=== PATIENT | female | born 1955 | race Caucasian/White ===

== ENCOUNTER 2020-10-18 16:04 | Observation (INO) ==
[2020-10-18] MEDS ORDERED: SODIUM CHLORIDE 0.9% 500 ML IV STA (17:43)
[2020-10-18] MEDS ORDERED: ONDANSETRON INJ 2 MG/ML 2 ML VIAL IV STA (17:43)
[2020-10-18] MEDS ORDERED: KETOROLAC TROMETHAMINE 15 MG/ML VIAL IV STA (17:43)
[2020-10-18] MEDS ORDERED: ACETAMINOPHEN 1000 MG/100 ML IV IV STA (17:43)
[2020-10-18 17:52] LABS: Basophils # (auto) 0.02 K/uL (0-0.2); Basophils % (auto) 0.2 %; Eosinophils # (auto) 0.01 K/uL (0-0.5); Eosinophils % (auto) 0.1 %; Hemoglobin 14.5 g/dL (12.0-16.0); Immature Granulocytes # (auto) 0.01 K/uL (0.00-0.02); Immature Granulocytes % (auto) 0.1 %; Lymphocytes # (auto) 2.44 K/uL (1.2-3.4); Lymphocytes % (auto) 30.2 %; Mean Corpuscular Hemoglobin 30.9 pg (25-34); Mean Corpuscular Hgb Conc 33.7 g/dL (32-36); Mean Corpuscular Volume 91.7 fL (80-100); Mean Platelet Volume 11.7 fL (7.4-10.4); Monocytes # (auto) 0.78 K/uL (0.11-0.59); Monocytes % (auto) 9.7 %; Neutrophils # (auto) 4.81 K/uL (1.4-6.5); Neutrophils % (auto) 59.7 %; Platelet Count 273 K/uL (130-400); RDW Coefficient of Variation 13.4 % (11.5-14.5); RDW Standard Deviation 44.6 fL (36.4-46.3); Red Blood Count 4.69 M/uL (4.2-5.4); White Blood Count 8.07 K/uL (4.8-10.8)
[2020-10-18 18:07] LABS: Alanine Aminotransferase 28 U/L (12-78); Albumin Level 4.1 gm/dl (3.4-5.0); Aspartate Aminotransferase 23 U/L (15-37); BUN Creatinine Ratio 20.3 (10-20); Blood Urea Nitrogen 21 mg/dl (7-18); Calcium 10.2 mg/dl (8.5-10.1); Carbon Dioxide 24 mmol/L (21-32); Chloride 110 mmol/L (98-107); Creatinine Clr Calc Pharmacy 54.5 ml/min; Est GFR (African American) 65.3 ml/min; Est GFR (Non-African American) 56.3 ml/min; Glucose 92 mg/dl (70-99); Lipase 204 U/L (73-393); Potassium 3.7 mmol/L (3.5-5.1); Sodium 142 mmol/L (136-145)
--- NOTE | 2020-10-18 18:07 | Emergency Department Note ---
Impression & Plan Right sided abdominal pain, Acute right flank pain, Failure of outpatient treatment ED Provider Note NAME: LUIS TOWNSEND AGE: 65 SEX: F : 1955 ARRIVES VIA: Walk-In INFORMANT: [Patient] ED PROVIDER(S): [Richi Kirby MD] CHIEF COMPLAINT: Abdominal pain HISTORY OF PRESENT ILLNESS: The patient is a 65-year-old female who presents to the ED with about a week of lower abdominal pain, mostly on the right. The pain is rated as severe at times. It does radiate to her back. She has had some diarrhea and nausea but no vomiting. No fever. No blood in the stool, no black stool. Patient denies any cough or congestion or shortness of breath. She has no urinary complaints. The patient did see her doctor's office and had outpatient labs and a CT scan. The CT did not show any evidence for urinary obstruction. There was no acute surgical process by plain noncontrast CT. Lab work showed a normal CBC and CMP however, her lactic acid level was elevated at around 4. She was sent here for further work-up. The patient has had an appendectomy and cholecystectomy as well as a hysterectomy. REVIEW OF SYSTEMS: See HPI for pertinent positives and negatives. A total of ten systems were reviewed and were otherwise negative. PMHx/PSHx: See Below SOCIAL HISTORY: See Below. PHYSICAL EXAM: GENERAL: Patient is in no acute distress. HEENT: No acute trauma, normocephalic atraumatic, mucous membranes moist, no nasal congestion, no scleral icterus. NECK: No stridor, no adenopathy, no meningismus, trachea is midline. LUNGS: Clear to auscultation bilaterally, no wheeze, no rhonchi, breath sounds equal. HEART: Without murmurs gallops or rubs, regular rate and rhythm. ABDOMEN: Soft, moderately tender in the right lower quadrant and mildly tender in the left lower quadrant, bowel sounds positive, no hernias, no peritonitis. EXTREMITIES: No cyanosis or edema, full range of motion of all the joints without pain or difficulty, no signs for acute trauma. NEUROLOGIC: Oriented x 3, no acute motor or sensory deficits, no focal weakness. SKIN: No rash, no jaundice, no diaphoresis. DIFFERENTIAL DIAGNOSIS: Appendicitis, ovarian cyst, ovarian torsion, ectopic , TOA, PID, infections, diverticulitis, UTI, obstruction, mesenteric ischemia, aortic pathology, inflammatory bowel disease, renal colic, PUD, pancreatitis, biliary pathology, hernia, volvulus, constipation, as well as other pathologies. EMERGENCY DEPARTMENT COURSE/PROCEDURES: ECG: Indication was abdominal pain. ECG shows a normal sinus rhythm with a rate of 69. There is no ST elevation, no PVCs. The QTc is 450. Continuous Cardiac Monitoring: An order was placed for continuous cardiac monitoring. The monitor shows a rate of 100 with normal sinus rhythm. MEDICAL DECISION MAKING: There is no leukocytosis or concerning anemia. There is a normal platelet count. No significant electrolyte abnormality or kidney failure. Lactic acid level returned normal at 1.9. Certainly, mesenteric ischemia seems less likely with a normal lactic acid value. No concerning liver enzyme elevation. No evidence for pancreatitis. ECG shows a sinus rhythm, no acute ischemia. Cardiac enzyme testing x1 is not consistent with acute cardiac injury. Urinalysis does not show any obvious infection. Covid testing is pending. Abdominal and pelvis CT does not show any evidence for arterial clot or insufficiency. There is no bowel obstruction, no acute surgical process by CT scan. On exam, the patient was quite tender along the entire right abdomen. The patient presents with uncontrolled right flank and right-sided abdominal pain. She had already seen her doctors office as an outpatient. She did receive IV Tylenol, IV Benadryl, IV Toradol and IV Zofran. She was given IV saline. She was eventually given a small dose of IV Dilaudid. The patient is pain is not controlled. She does not feel she can be safely discharged. She is not eating or drinking. She will require further care here in the hospital. At this point, the cause for pain is unclear although, a small ureteral stone passing not noted on CT could explain her discomfort. She does have calcium oxalate crystals on her urinalysis. I spoke to the patient and case management. The on-call hospitalist was consulted. Past Med/Surg History Medical History Anxiety Bowel obstruction Interstitial cystitis Mesenteric adenitis Post-surgical hypothyroidism Post-surgical hypothyroidism Surgical History H/O bilateral breast reduction surgery H/O parathyroidectomy H/O right breast biopsy H/O: hysterectomy History of appendectomy History of lithotripsy History of parathyroidectomy History of partial thyroidectomy History of salpingoophorectomy S/P bilateral foot surgery S/P cholecystectomy Family History Father Cancer Lung cancer Mother Alzheimer disease Stroke Hypertension Daughter Breast cancer Brother Heart disease Sister Diabetes Hypertension Social History Smoking Status: Never smoker Hx Alcohol Use: Yes Alcohol type: wine Alcohol Intake Frequency: 2-4 x/Month Hx Substance Use: No Preferred Language: Upper Sorbian marital status: Current Living Situation: Spouse current occupational status: retired How many Children do You have: 1 Feels Safe at Home: Yes Do you think of yourself as: straight/heterosexual Gender Identity: Female Allergies Allergies Allergy/AdvReac Type Severity Reaction Status Date / Time Opioids - Morphine Analogues Allergy Severe severe Verified 10/18/20 18:54 rask chest tightness acetaminophen [From Percocet] Allergy Intermediate rash Verified 10/18/20 18:54 morphine Allergy Intermediate CHEST PAIN Verified 10/18/20 18:54 oxycodone [From Percocet] Allergy Intermediate rash Verified 10/18/20 18:54 levofloxacin Allergy Mild Headache Verified 10/18/20 18:54 duloxetine [From Cymbalta] AdvReac Intermediate "JITTERY" Verified 10/18/20 18:54 NARCOTIC ANALGESICS Allergy Intermediate ITCHING Uncoded 10/18/20 18:54 Home Meds Home Medications Medication Instructions Recorded Confirmed diazepam 5 mg PO Q12 PRN 03/12/19 10/18/20 diclofenac sodium 2 g TOPICAL QID PRN 03/12/19 10/18/20 ascorbic acid (vitamin C) 500 mg 500 mg PO DAILY 02/16/20 10/18/20 tablet cholecalciferol (vitamin D3) 25 25 mcg PO DAILY 02/16/20 10/18/20 mcg (1,000 unit) capsule folic acid 400 mcg tablet 0.4 mg PO DAILY 02/16/20 10/18/20 mecobalamin (vitamin B12) 1,000 1,000 mcg SUBLINGUAL DAILY 02/16/20 10/18/20 mcg disintegrating tablet,sublingual multivitamin 1 tab PO DAILY 02/16/20 10/18/20 zinc 50 mg tablet 50 mg PO DAILY 02/16/20 10/18/20 Previous Rx's Medication Instructions Recorded levothyroxine 50 mcg tablet 50 mcg PO DAILY #30 tab 08/29/20 cyclobenzaprine 5 mg tablet 5 mg PO BID PRN #60 tab 10/03/20 metoprolol succinate 100 mg 100 mg PO BID #60 tab 10/03/20 tablet,extended release 24 hr Results & Data (ED) Vital Signs Vital Signs - 24 hr 10/18/20 16:18 10/18/20 18:04 10/18/20 18:13 Temperature 36.8 C Temperature Source Skin Pulse Rate 100 H 78 Pulse Rate from SpO2 Sensor 79 Respiratory Rate 18 25 H Blood Pressure 152/101 H 154/100 H Blood Pressure Mean 118 118 Pulse Oximetry 96 96 Oxygen Delivery Method Room Air Sepsis Recent Fever Within 48 Hours No Sepsis New/Unexplained Change in Mental Status No Sepsis Action Taken by Nursing No Action Required 10/18/20 19:33 10/18/20 20:00 Temperature Temperature Source Pulse Rate 78 66 Pulse Rate from SpO2 Sensor 76 64 Respiratory Rate 24 14 Blood Pressure 143/81 H 119/82 Blood Pressure Mean 101 94 Pulse Oximetry 97 96 Oxygen Delivery Method Sepsis Recent Fever Within 48 Hours Sepsis New/Unexplained Change in Mental Status Sepsis Action Taken by Group Home Medications Current Medication List: was personally reviewed by me Laboratory Data Attestation: I reviewed the patient's lab results. Result diagrams: 10/18/20 17:38 10/18/20 17:38 Lab Results 10/18/20 10/18/20 10/18/20 Range/Units 17:38 17:38 17:38 WBC 8.07 (4.8-10.8) K/uL RBC 4.69 (4.2-5.4) M/uL Hgb 14.5 (12.0-16.0) g/dL Hct 43.0 (37-47) % MCV 91.7 (80-100) fL MCH 30.9 (25-34) pg MCHC 33.7 (32-36) g/dL RDW Std Deviation 44.6 (36.4-46.3) fL RDW Coeff of [place] 13.4 (11.5-14.5) % Plt Count 273 (130-400) K/uL MPV 11.7 H (7.4-10.4) fL Immature Gran % (Auto) 0.1 % Neut % (Auto) 59.7 % Lymph % (Auto) 30.2 % [place] % (Auto) 9.7 % Eos % (Auto) 0.1 % Baso % (Auto) 0.2 % Neut # (Auto) 4.81 (1.4-6.5) K/uL Lymph # (Auto) 2.44 (1.2-3.4) K/uL [place] # (Auto) 0.78 H (0.11-0.59) K/uL Eos # (Auto) 0.01 (0-0.5) K/uL Baso # (Auto) 0.02 (0-0.2) K/uL Immature Gran # (Auto) 0.01 (0.00-0.02) K/uL Sodium 142 (136-145) mmol/L Potassium 3.7 (3.5-5.1) mmol/L Chloride 110 H (98-107) mmol/L Carbon Dioxide 24 (21-32) mmol/L Anion Gap 8.0 (3-11) BUN 21 H (7-18) mg/dl Creatinine 1.04 (0.6-1.2) mg/dl Est Cr Clr Drug Dosing 54.5 ml/min Est GFR ( Amer) 65.3 ml/min Est GFR (Non-Af Amer) 56.3 ml/min BUN/Creatinine Ratio 20.3 H (10-20) Glucose 92 (70-99) mg/dl Lactate 1.9 (0.4-2.0) mmol/L Calcium 10.2 H (8.5-10.1) mg/dl Total Bilirubin 0.7 (0.2-1) mg/dl AST 23 (15-37) U/L ALT 28 (12-78) U/L Alkaline Phosphatase 96 (45-117) U/L Troponin I < 0.015 (0-0.045) ng/ml Total Protein 8.3 H (6.4-8.2) gm/dl Albumin 4.1 (3.4-5.0) gm/dl Globulin 4.2 H (2.5-4.0) gm/dl Albumin/Globulin Ratio 1.0 (0.9-2) Lipase 204 (73-393) U/L Urine Color Urine Appearance (Clear) Urine pH (4.5-7.5) Ur Specific [place] (1.000-1.030) Urine Protein (Negative) Urine Glucose (UA) (Negative) Urine Ketones (Negative) Urine Blood (Negative) Urine Nitrite (Negative) Urine Bilirubin (Negative) Urine Urobilinogen (Negative) Ur Leukocyte Esterase (Negative) Urine WBC (Auto) (0-5) /hpf Urine RBC (Auto) (0-4) /hpf U Hyaline Cast (Auto) (0-5) /lpf U Epithel Cells (Auto) (0-5) /lpf Urine Bacteria (Auto) (Negative) Urine Crystals Calcium Oxalate Crystal (None Prsent) COVID-19 Eval Order 10/18/20 10/18/20 Range/Units 17:41 20:16 WBC (4.8-10.8) K/uL RBC (4.2-5.4) M/uL Hgb (12.0-16.0) g/dL Hct (37-47) % MCV (80-100) fL MCH (25-34) pg MCHC (32-36) g/dL RDW Std Deviation (36.4-46.3) fL RDW Coeff of [place] (11.5-14.5) % Plt Count (130-400) K/uL MPV (7.4-10.4) fL Immature Gran % (Auto) % Neut % (Auto) % Lymph % (Auto) % [place] % (Auto) % Eos % (Auto) % Baso % (Auto) % Neut # (Auto) (1.4-6.5) K/uL Lymph # (Auto) (1.2-3.4) K/uL [place] # (Auto) (0.11-0.59) K/uL Eos # (Auto) (0-0.5) K/uL Baso # (Auto) (0-0.2) K/uL Immature Gran # (Auto) (0.00-0.02) K/uL Sodium (136-145) mmol/L Potassium (3.5-5.1) mmol/L Chloride (98-107) mmol/L Carbon Dioxide (21-32) mmol/L Anion Gap (3-11) BUN (7-18) mg/dl Creatinine (0.6-1.2) mg/dl Est Cr Clr Drug Dosing ml/min Est GFR ( Amer) ml/min Est GFR (Non-Af Amer) ml/min BUN/Creatinine Ratio (10-20) Glucose (70-99) mg/dl Lactate (0.4-2.0) mmol/L Calcium (8.5-10.1) mg/dl Total Bilirubin (0.2-1) mg/dl AST (15-37) U/L ALT (12-78) U/L Alkaline Phosphatase (45-117) U/L Troponin I (0-0.045) ng/ml Total Protein (6.4-8.2) gm/dl Albumin (3.4-5.0) gm/dl Globulin (2.5-4.0) gm/dl Albumin/Globulin Ratio (0.9-2) Lipase (73-393) U/L Urine Color Dark Yellow Urine Appearance Cloudy A (Clear) Urine pH 6.0 (4.5-7.5) Ur Specific [place] 1.030 (1.000-1.030) Urine Protein Negative (Negative) Urine Glucose (UA) Negative (Negative) Urine Ketones 1+ H (Negative) Urine Blood Negative (Negative) Urine Nitrite Negative (Negative) Urine Bilirubin Negative (Negative) Urine Urobilinogen Negative (Negative) Ur Leukocyte Esterase Negative (Negative) Urine WBC (Auto) 1-5 (0-5) /hpf Urine RBC (Auto) 0-4 (0-4) /hpf U Hyaline Cast (Auto) 1-5 (0-5) /lpf U Epithel Cells (Auto) 10-20 H (0-5) /lpf Urine Bacteria (Auto) 1+ H (Negative) Urine Crystals Not Reportable Calcium Oxalate Crystal Present A (None Prsent) COVID-19 Eval Order Covid19 at [facility] Administered Medications Discontinued Medications Acetaminophen (Acetaminophen 1000 Mg/100 Ml Iv) 1,000 mg IV NOW STA Stop: 10/18/20 17:44 Last Admin: 10/18/20 18:12 Dose: 1,000 mg Documented by: [id number] Diphenhydramine HCl (Diphenhydramine 50 Mg/Ml Vial) 6.25 mg IV NOW STA Stop: 10/18/20 20:19 Last Admin: 10/18/20 20:54 Dose: Not Given Documented by: [id number] Sodium Chloride (Nss) 500 mls @ 999 mls/hr IV .Q31M STA Stop: 10/18/20 18:13 Last Infusion: 10/18/20 19:35 Dose: 0 mls/hr Documented by: [id number] Admin: 10/18/20 18:12 Dose: 999 mls/hr Documented by: [id number] Ioversol (Optiray 320 125ml) 120 ml IV ONCE ONE Stop: 10/18/20 19:14 Last Admin: 10/18/20 19:14 Dose: 120 ml Documented by: [id number] Ketorolac Tromethamine (Ketorolac Tromethamine 15 Mg/Ml Vial) 15 mg IV NOW STA Stop: 10/18/20 17:44 Last Admin: 10/18/20 18:12 Dose: 15 mg Documented by: [id number] Ondansetron HCl (Ondansetron Inj 2 Mg/Ml 2 Ml Vial) 4 mg IV NOW STA Stop: 10/18/20 17:44 Last Admin: 10/18/20 18:12 Dose: 4 mg Documented by: [id number] Imaging Data Radiologist's Impression: Abdomen/Pelvis CTA 10/18/20 17:46 CT angio abdomen pelvis w con HISTORY: Generalized abdominal pain, elevated lactic acid. Assess for arterial stenosis or ischemic bowel. TECHNIQUE: Multiaxial CT images of the abdomen and pelvis were performed following the use of intravenous contrast to evaluate the major dural structures. Maximal intensity projection images were performed at the workstation by the radiologist. COMPARISON STUDY: Abdomen and pelvis CT 03/12/2019. FINDINGS: The lung bases are essentially clear. No pneumoperitoneum. No pneumatosis. No suspicious lytic or blastic osseous lesions. Stable 9 mm hypodense lesion within the right hepatic lobe. This is likely too small to characterize but favors a cyst given the long-term stability. Prior cholecystectomy. Multiple calcified splenic granulomas. The adrenal glands and pancreas are unremarkable. No retroperitoneal lymphadenopathy. The kidneys enhance normally. No hydronephrosis. Left peripelvic renal cyst is again noted and remains unchanged. Normal bladder. The uterus is surgically absent. No pelvic free fluid. Colonic diverticulosis. No CT evidence for acute diverticulitis. No bowel wall thickening or obstruction. Prior appendectomy. Mild calcified plaque within the abdominal aorta. No evidence for an abdominal aortic aneurysm or dissection. The iliac arteries are normal in course and caliber. The celiac, superior mesenteric, inferior mesenteric, and bilateral renal arteries show no significant stenosis, occlusion, or dissection. IMPRESSION: 1. No bowel wall thickening or obstruction. 2. Colonic diverticulosis. No evidence for acute diverticulitis. 3. The major arterial structures are widely patent. No arterial dissection or aneurysm identified. 4. Postoperative changes as described above. ACT 112: Negative or not required by law. Electronically signed by: Wayne Weinberg M.D. 10/18/2020 7:39 PM Discharge Plan Visit Data Chief Complaint: Abdominal Pain Stated Complaint: ABD PAIN ED Provider: Richi Kirby Discharge Problem: Right sided abdominal pain, Acute right flank pain, Failure of outpatient treatment Patient Disposition: Admitted As Inpatient Condition: Fair Forms Stand Alone Forms: [facility] [place] [employer] Prescriptions Prescriptions: No Action levothyroxine 50 mcg tablet 50 mcg PO DAILY Qty: 30 RF: 5 cyclobenzaprine 5 mg tablet 5 mg PO BID PRN (Reason: muscle spasm) Qty: 60 RF: 0 metoprolol succinate 100 mg tablet extended release 24 hr 100 mg PO BID Qty: 60 RF: 2 multivitamin Tablet 1 tab PO DAILY RF: 0 ascorbic acid (vitamin C) 500 mg tablet 500 mg PO DAILY RF: 0 mecobalamin (vitamin B12) 1,000 mcg tablet,disintegrating 1,000 mcg sublingual DAILY RF: 0 cholecalciferol (vitamin D3) 25 mcg (1,000 unit) capsule 25 mcg PO DAILY RF: 0 folic acid 400 mcg tablet 0.4 mg PO DAILY RF: 0 zinc 50 mg tablet 50 mg PO DAILY RF: 0 diazepam 5 mg tablet 5 mg PO Q12 PRN (Reason: Anxiety) RF: 0 diclofenac sodium 1 % gel 2 g TOPICAL QID PRN (Reason: Pain) RF: 0 Referrals Referrals: Maine Chowdhury DO [Primary Care Provider] -
[2020-10-18 18:12] LABS: Alkaline Phosphatase 96 U/L (45-117); Bilirubin,Total 0.7 mg/dl (0.2-1); Globulin 4.2 gm/dl (2.5-4.0); Total Protein 8.3 gm/dl (6.4-8.2); Troponin I < 0.015 ng/ml (0-0.045)
[2020-10-18 18:51] LABS: Appearance Urine Cloudy (Clear); Bilirubin Urine Negative (Negative); Blood Urine Negative (Negative); Color Urine Dark Yellow; Glucose Urine UA Negative (Negative); Ketones Urine 1+ (Negative); Leukocyte Esterase Urine Negative (Negative); Nitrite Urine Negative (Negative); Protein Urine Negative (Negative); RBC Urine Automated 0-4 /hpf (0-4); Urobilinogen Urine Negative (Negative)
[2020-10-18 19:08] LABS: Bacteria Urine Automated 1+ (Negative); Calcium Oxalate Crystals Urine Present (None Prsent)
[2020-10-18] MEDS ORDERED: OPTIRAY 320 125ml IV ONE (19:13)
--- NOTE | 2020-10-18 19:40 | CT Scan Report ---
CT angio abdomen pelvis w con HISTORY: Generalized abdominal pain, elevated lactic acid. Assess for arterial stenosis or ischemic bowel. TECHNIQUE: Multiaxial CT images of the abdomen and pelvis were performed following the use of intrave nous contrast to evaluate the major dural structures. Maximal intensity projection images were perfor med at the workstation by the radiologist. COMPARISON STUDY: Abdomen and pelvis CT 03/12/2019. FINDINGS: The lung bases are essentially clear. No pneumoperitoneum. No pneumatosis. No suspicious ly tic or blastic osseous lesions. Stable 9 mm hypodense lesion within the right hepatic lobe. This is l ikely too small to characterize but favors a cyst given the long-term stability. Prior cholecystectom y. Multiple calcified splenic granulomas. The adrenal glands and pancreas are unremarkable. No retrop eritoneal lymphadenopathy. The kidneys enhance normally. No hydronephrosis. Left peripelvic renal cys t is again noted and remains unchanged. Normal bladder. The uterus is surgically absent. No pelvic fr ee fluid. Colonic diverticulosis. No CT evidence for acute diverticulitis. No bowel wall thickening o r obstruction. Prior appendectomy. Mild calcified plaque within the abdominal aorta. No evidence for an abdominal aortic aneurysm or dis section. The iliac arteries are normal in course and caliber. The celiac, superior mesenteric, inferi or mesenteric, and bilateral renal arteries show no significant stenosis, occlusion, or dissection. IMPRESSION: 1. No bowel wall thickening or obstruction. 2. Colonic diverticulosis. No evidence for acute diverticulitis. 3. The major arterial structures are widely patent. No arterial dissection or aneurysm identified. 4. Postoperative changes as described above. ACT 112: Negative or not required by law. Electronically signed by: Wayne Weinberg M.D. 10/18/2020 7:39 PM
[2020-10-18] MEDS ORDERED: HYDROmorphone INJ 0.5 MG/0.5 ML SYR IV PRN (20:17)
[2020-10-18] MEDS: diphenhydrAMINE 50 MG/ML VIAL IV STA ×2 (20:54→21:48)
--- NOTE | 2020-10-18 21:23 | History & Physical Report ---
Date of Service October 18, 2020 Assessment & Plan (1) Right sided abdominal pain: Right-sided abdominal pain/acute right flank pain/calcium oxalate crystals in urine/history of kidney stones- Patient is status post parathyroidectomy Pain not improved with IV Toradol for IV Tylenol. Patient does not want to take narcotic pain medications Placed on NSS + KCl 20 mEq under 50 mils per hour N.p.o. after midnight Trial of Lidoderm patch. Continue Voltaren gel as needed Consult urology Present on Admission?: Yes (2) Acute right flank pain: See above Present on Admission?: Yes (3) SVT (supraventricular tachycardia): Continue metoprolol succinate 100 mg p.o. twice daily Present on Admission?: Yes (4) Post-surgical hypothyroidism: Continue levothyroxine 50 mcg daily Present on Admission?: Yes (5) Anxiety: Continue diazepam as needed Present on Admission?: Yes (6) H/O parathyroidectomy: Noted Present on Admission?: Yes (7) Mixed connective tissue disease: Continue usual medications: Cyclobenzaprine, diazepam, diclofenac sodium topically, folic acid. Present on Admission?: Yes History of Present Illness Chief Complaint: The patient presents to the emergency department with complaint of 1 week of right flank pain, and right lower pelvic pain Primary Care Provider: Maine Chowdhury, The patient is a 65-year-old female with a past medical history including calculus of kidney, depression, DJD, fibromyalgia, generalized anxiety disorder, interstitial cystitis, ITP, lymphedema of arm, MCTD, mixed hyperlipidemia, MATHIS, osteoporosis, idiopathic peripheral neuropathy, panic attack, plantar fasciitis, reflux, renal colic, and hyperparathyroidism status post parathyroidectomy. She presents with the above symptoms. She had been assessed at her physician's office with outpatient laboratories and a CT scan which did not show any signs of urinary obstruction or any other acute process. Her laboratory work-up showed a normal CBC and chemistry profile, level, but since her lactic acid level was elevated at 4, she was sent to the emergency department here for further assessment. Work-up in the emergency department at [facility] included CT angiography of abdomen pelvis which was negative. Her urinalysis did show calcium oxalate stones, and there was reportedly concern regarding microlithiasis on her outpatient physician, and she was referred for evaluation for admission. Allergies Allergy/AdvReac Type Severity Reaction Status Date / Time Opioids - Morphine Analogues Allergy Severe severe Verified 10/18/20 18:54 rask chest tightness acetaminophen [From Percocet] Allergy Intermediate rash Verified 10/18/20 18:54 morphine Allergy Intermediate CHEST PAIN Verified 10/18/20 18:54 oxycodone [From Percocet] Allergy Intermediate rash Verified 10/18/20 18:54 levofloxacin Allergy Mild Headache Verified 10/18/20 18:54 duloxetine [From Cymbalta] AdvReac Intermediate "JITTERY" Verified 10/18/20 18:54 NARCOTIC ANALGESICS Allergy Intermediate ITCHING Uncoded 10/18/20 18:54 Home Medications Medication Instructions Recorded Confirmed Type diazepam 5 mg PO Q12 PRN 03/12/19 10/18/20 History diclofenac sodium 2 g TOPICAL QID PRN 03/12/19 10/18/20 History ascorbic acid (vitamin C) 500 mg 500 mg PO DAILY 02/16/20 10/18/20 History tablet cholecalciferol (vitamin D3) 25 25 mcg PO DAILY 02/16/20 10/18/20 History mcg (1,000 unit) capsule folic acid 400 mcg tablet 0.4 mg PO DAILY 02/16/20 10/18/20 History mecobalamin (vitamin B12) 1,000 1,000 mcg SUBLINGUAL DAILY 02/16/20 10/18/20 History mcg disintegrating tablet,sublingual multivitamin 1 tab PO DAILY 02/16/20 10/18/20 History zinc 50 mg tablet 50 mg PO DAILY 02/16/20 10/18/20 History levothyroxine 50 mcg tablet 50 mcg PO DAILY #30 tab 08/29/20 10/18/20 Rx cyclobenzaprine 5 mg tablet 5 mg PO BID PRN #60 tab 10/03/20 10/18/20 Rx metoprolol succinate 100 mg 100 mg PO BID #60 tab 10/03/20 10/18/20 Rx tablet,extended release 24 hr Past Med/Surg History Medical History Anxiety Bowel obstruction Interstitial cystitis Mesenteric adenitis Post-surgical hypothyroidism Post-surgical hypothyroidism Surgical History H/O bilateral breast reduction surgery H/O parathyroidectomy H/O right breast biopsy H/O: hysterectomy History of appendectomy History of lithotripsy History of parathyroidectomy History of partial thyroidectomy History of salpingoophorectomy S/P bilateral foot surgery S/P cholecystectomy Family History Father Cancer Lung cancer Mother Alzheimer disease Stroke Hypertension Daughter Breast cancer Brother Heart disease Sister Diabetes Hypertension Social History Smoking Status: Never smoker Hx Alcohol Use: Yes Alcohol type: wine Alcohol Intake Frequency: 2-4 x/Month Hx Substance Use: No Preferred Language: Estonian marital status: Current Living Situation: Spouse current occupational status: retired How many Children do You have: 1 Feels Safe at Home: Yes Do you think of yourself as: straight/heterosexual Gender Identity: Female Review of Systems Review of Systems: The patient denies chest pain, palpitations, shortness of breath, dyspnea on exertion, cough, lower extremity swelling, sore throat, fevers, chills, sweats, nausea, vomiting, blood in urine or stool, dysuria, urinary frequency or urgency, lightheadedness, dizziness, headache, memory loss, loss of consciousness, rash, abnormal bruising or bleeding, imbalance, focal or generalized weakness, numbness or tingling in arms or legs, generalized arthralgias or myalgias, neck pain, or night sweats. The review of systems is otherwise negative other than for that already noted above, and at least 10 systems have been reviewed. Physical Exam Physical Exam: The patient is awake, alert and oriented 3, well developed and well nourished, normocephalic and atraumatic, lying in bed and in no acute distress. HEENT--PERRL, EOMI, mucous membranes and oropharynx dry. Neck--supple. No JVD. No bruits. Thyroid normal, trachea midline, no adenopathy. Heart--normal S1 and S2. No murmurs, rubs or gallops. Lungs--clear bilaterally, no respiratory distress, no accessory muscle use. Abdomen--normal bowel sounds and soft. Tender to light touch right flank and right lower abdomen and pelvis. Nondistended Extremities--no cyanosis or clubbing. No edema. Dermatologic--normal skin turgor, normal color, no abnormal lymph nodes, no rash. Neurologic--cranial nerves II through XII grossly intact. Rheumatologic--normal range of motion. Psychiatric--normal affect. Results & Data Results & Data ([facility]) Vital Signs (Past 12 Hours) Vital Signs Temp Pulse Resp BP Pulse Ox 10/18/20 20:00 66 14 119/82 96 10/18/20 19:33 78 24 143/81 H 97 10/18/20 18:04 78 25 H 154/100 H 96 10/18/20 16:18 98.2 F 100 H 18 152/101 H 96 Laboratory Results Laboratory Results WBC 8.07 K/uL (4.8-10.8) 10/18/20 17:38 RBC 4.69 M/uL (4.2-5.4) 10/18/20 17:38 Hgb 14.5 g/dL (12.0-16.0) 10/18/20 17:38 Hct 43.0 % (37-47) 10/18/20 17:38 MCV 91.7 fL (80-100) 10/18/20 17:38 MCH 30.9 pg (25-34) 10/18/20 17:38 MCHC 33.7 g/dL (32-36) 10/18/20 17:38 RDW Std Deviation 44.6 fL (36.4-46.3) 10/18/20 17:38 RDW Coeff of Tamica 13.4 % (11.5-14.5) 10/18/20 17:38 Plt Count 273 K/uL (130-400) 10/18/20 17:38 MPV 11.7 fL (7.4-10.4) H 10/18/20 17:38 Immature Gran % (Auto) 0.1 % 10/18/20 17:38 Neut % (Auto) 59.7 % 10/18/20 17:38 Lymph % (Auto) 30.2 % 10/18/20 17:38 Braxton % (Auto) 9.7 % 10/18/20 17:38 Eos % (Auto) 0.1 % 10/18/20 17:38 Baso % (Auto) 0.2 % 10/18/20 17:38 Neut # (Auto) 4.81 K/uL (1.4-6.5) 10/18/20 17:38 Lymph # (Auto) 2.44 K/uL (1.2-3.4) 10/18/20 17:38 Braxton # (Auto) 0.78 K/uL (0.11-0.59) H 10/18/20 17:38 Eos # (Auto) 0.01 K/uL (0-0.5) 10/18/20 17:38 Baso # (Auto) 0.02 K/uL (0-0.2) 10/18/20 17:38 Immature Gran # (Auto) 0.01 K/uL (0.00-0.02) 10/18/20 17:38 Sodium 142 mmol/L (136-145) 10/18/20 17:38 Potassium 3.7 mmol/L (3.5-5.1) 10/18/20 17:38 Chloride 110 mmol/L (98-107) H 10/18/20 17:38 Carbon Dioxide 24 mmol/L (21-32) 10/18/20 17:38 Anion Gap 8.0 (3-11) 10/18/20 17:38 BUN 21 mg/dl (7-18) H 10/18/20 17:38 Creatinine 1.04 mg/dl (0.6-1.2) 10/18/20 17:38 Est Cr Clr Drug Dosing 54.5 ml/min 10/18/20 17:38 Est GFR ( Amer) 65.3 ml/min 10/18/20 17:38 Est GFR (Non-Af Amer) 56.3 ml/min 10/18/20 17:38 BUN/Creatinine Ratio 20.3 (10-20) H 10/18/20 17:38 Glucose 92 mg/dl (70-99) 10/18/20 17:38 Lactate 1.9 mmol/L (0.4-2.0) 10/18/20 17:38 Calcium 10.2 mg/dl (8.5-10.1) H 10/18/20 17:38 Total Bilirubin 0.7 mg/dl (0.2-1) 10/18/20 17:38 AST 23 U/L (15-37) 10/18/20 17:38 ALT 28 U/L (12-78) 10/18/20 17:38 Alkaline Phosphatase 96 U/L (45-117) 10/18/20 17:38 Troponin I < 0.015 ng/ml (0-0.045) 10/18/20 17:38 Total Protein 8.3 gm/dl (6.4-8.2) H 10/18/20 17:38 Albumin 4.1 gm/dl (3.4-5.0) 10/18/20 17:38 Globulin 4.2 gm/dl (2.5-4.0) H 10/18/20 17:38 Albumin/Globulin Ratio 1.0 (0.9-2) 10/18/20 17:38 Lipase 204 U/L (73-393) 10/18/20 17:38 Urine Color Dark Yellow 10/18/20 17:41 Urine Appearance Cloudy (Clear) A 10/18/20 17:41 Urine pH 6.0 (4.5-7.5) 10/18/20 17:41 Ur Specific Turton 1.030 (1.000-1.030) 10/18/20 17:41 Urine Protein Negative (Negative) 10/18/20 17:41 Urine Glucose (UA) Negative (Negative) 10/18/20 17:41 Urine Ketones 1+ (Negative) H 10/18/20 17:41 Urine Blood Negative (Negative) 10/18/20 17:41 Urine Nitrite Negative (Negative) 10/18/20 17:41 Urine Bilirubin Negative (Negative) 10/18/20 17:41 Urine Urobilinogen Negative (Negative) 10/18/20 17:41 Ur Leukocyte Esterase Negative (Negative) 10/18/20 17:41 Urine WBC (Auto) 1-5 /hpf (0-5) 10/18/20 17:41 Urine RBC (Auto) 0-4 /hpf (0-4) 10/18/20 17:41 U Hyaline Cast (Auto) 1-5 /lpf (0-5) 10/18/20 17:41 U Epithel Cells (Auto) 10-20 /lpf (0-5) H 10/18/20 17:41 Urine Bacteria (Auto) 1+ (Negative) H 10/18/20 17:41 Urine Crystals Not Reportable 10/18/20 17:41 Calcium Oxalate Crystal Present (None Prsent) A 10/18/20 17:41 COVID-19 Eval Order Covid19 at [facility] 10/18/20 20:16 SARS-CoV-2 (PCR) NEGATIVE (Negative) 10/18/20 20:16 Impressions Abdomen/Pelvis CTA 10/18/20 17:46 CT angio abdomen pelvis w con HISTORY: Generalized abdominal pain, elevated lactic acid. Assess for arterial stenosis or ischemic bowel. TECHNIQUE: Multiaxial CT images of the abdomen and pelvis were performed following the use of intravenous contrast to evaluate the major dural structures. Maximal intensity projection images were performed at the workstation by the radiologist. COMPARISON STUDY: Abdomen and pelvis CT 03/12/2019. FINDINGS: The lung bases are essentially clear. No pneumoperitoneum. No pneumatosis. No suspicious lytic or blastic osseous lesions. Stable 9 mm hypodense lesion within the right hepatic lobe. This is likely too small to characterize but favors a cyst given the long-term stability. Prior cholecystectomy. Multiple calcified splenic granulomas. The adrenal glands and pancreas are unremarkable. No retroperitoneal lymphadenopathy. The kidneys enhance normally. No hydronephrosis. Left peripelvic renal cyst is again noted and remains unchanged. Normal bladder. The uterus is surgically absent. No pelvic free fluid. Colonic diverticulosis. No CT evidence for acute diverticulitis. No bowel wall thickening or obstruction. Prior appendectomy. Mild calcified plaque within the abdominal aorta. No evidence for an abdominal aortic aneurysm or dissection. The iliac arteries are normal in course and caliber. The celiac, superior mesenteric, inferior mesenteric, and bilateral renal arteries show no significant stenosis, occlusion, or dissection. IMPRESSION: 1. No bowel wall thickening or obstruction. 2. Colonic diverticulosis. No evidence for acute diverticulitis. 3. The major arterial structures are widely patent. No arterial dissection or aneurysm identified. 4. Postoperative changes as described above. ACT 112: Negative or not required by law. Electronically signed by: Wayne Weinberg M.D. 10/18/2020 7:39 PM Code Status & VTE Plan Code Status Full code VTE Prophylaxis Plan VTE Prophylaxis will be ordered: Yes PG Care Time/CCT Total # of Minutes Spent Total Time Spent with Patient: Total time spent is greater than 50% in coordination of care (as documented) at patient's floor/unit and/or counseling patient: Coding Level of Care Code 49178 OBS Care - Level 3 Diagnoses Right sided abdominal pain R10.9 Acute right flank pain R10.9 SVT (supraventricular tachycardia) I47.1 Post-surgical hypothyroidism E89.0 Anxiety F41.9 H/O parathyroidectomy Z90.09 Mixed connective tissue disease M35.1
--- NOTE | 2020-10-18 22:00 | Urology Consultation ---
Date of Consultation October 18, 2020 Assessment & Plan (1) Right sided abdominal pain: Cause of patient's abdominal pain has not been ascertained. She is being admitted to the hospitalist service. There is concern on the hospitalist side that the patient may have microlithiasis causing her pain. We therefore recommend proceeding as follows: Provide analgesics Provide antiemetics Provide IV fluid for hydration Consider initiating Flomax for expulsive therapy As there is no clear sign of urinary tract infection antibiotics do not appear to be required at this time I did discuss with the patient that we not see any kidney stones on her CT scans. If she does have microlithiasis they are likely small enough that they will pass on their own with the above-noted measures. We will continue following while the patient is hospitalized Remaining evaluation work-up and plan as directed by the primary service Supervising Physician Co-Signing Physician Notes Consult placed for possible "microlithiasis" - pt seen and examined - tender over the right and left lower quadrants as well as the suprapubic area - no tenderness at the R or L CVA - comfortable appearing CT reviewed - no stones. no hydro. no stranding - overall, I do not believe her pain is related to her kidneys or kidney stones - there is no indication for intervention or evaluation right now She has had a prior parathyroidectomy and has chronic IC - she is established with [facility] urology and can have outpt follow (non- urgent) with their service - please call if new specific issues arise during this hospitalization History of Present Illness Reason for Consultation: Possible microlithiasis History of Present Illness Is a 65-year-old female who presented to the emergency department [facility] with lower abdominal pain for approximately 1 week. She describes the pain as an achy pain in the lower abdomen but most prominent on the right-hand side. She said the pain radiates somewhat to her back. She has had nausea without vomiting. She denies any fevers, shakes, chills. She denies any melena, hematochezia, or bright red blood per rectum. Patient denies any dysuria or hematuria. She does note that her urine appears dark and somewhat cloudy at times. She does relate a history of prior kidney stones for which she had to undergo a parathyroidectomy due to hypercalcemia. She notes that the pain she is currently experiencing is not similar to what she experiences when she has kidney stones. The patient was seen in [place] where she reportedly had a CAT scan did not show any evidence of nephrolithiasis or other acute surgical issues. She was noted to have an elevated lactic acid level at [facility]. Because of these findings she was referred to [facility] emergency department. The patient does report prior surgical surgeries having had an appendectomy, cholecystectomy and hysterectomy. Since arrival to the [facility] emergency department the patient is noted to be afebrile and hemodynamically stable. She did have labs and imaging which independently reviewed. CBC revealed her white blood cell count, hemoglobin, hematocrit, and platelet count are all within normal range. Chemistry profile showed her sodium, potassium, and creatinine were within normal range. BUN had a slight elevation at 21. Her lactic acid level was noted to be normal. There is no significant elevation of her LFTs or lipase. Patient did have a urinalysis where her urine appeared cloudy however urine nitrites and leukocyte esterase were negative. There is no evidence of pyuria and she had 1+ bacteria. Covid test was performed and was noted to be pending. Patient also had a CT scan of the abdomen pelvis that showed no evidence of bowel wall thickening or obstruction. There is no evidence of diverticulitis. There is no evidence of any arterial dissection or aneurysms. Patient's kidneys were noted to enhance normally without hydronephrosis. There is no evidence of nephrolithiasis. At the time of my interview the patient was lying in bed. She did complain of some pain but appeared for the most part comfortable and was in no distress. Allergies Allergy/AdvReac Type Severity Reaction Status Date / Time Opioids - Morphine Analogues Allergy Severe severe Verified 10/18/20 18:54 rask chest tightness oxycodone [From Percocet] Allergy Intermediate rash Verified 10/18/20 18:54 duloxetine [From Cymbalta] AdvReac Intermediate "JITTERY" Verified 10/18/20 18:54 morphine AdvReac Intermediate CHEST PAIN Verified 10/19/20 01:27 levofloxacin AdvReac Mild Headache Verified 10/19/20 01:27 Home Medications Medication Instructions Recorded Confirmed Type diazepam 5 mg PO Q12 PRN 03/12/19 10/18/20 History diclofenac sodium 2 g TOPICAL QID PRN 03/12/19 10/18/20 History ascorbic acid (vitamin C) 500 mg 500 mg PO DAILY 02/16/20 10/18/20 History tablet cholecalciferol (vitamin D3) 25 25 mcg PO DAILY 02/16/20 10/18/20 History mcg (1,000 unit) capsule folic acid 400 mcg tablet 0.4 mg PO DAILY 02/16/20 10/18/20 History mecobalamin (vitamin B12) 1,000 1,000 mcg SUBLINGUAL DAILY 02/16/20 10/18/20 History mcg disintegrating tablet,sublingual multivitamin 1 tab PO DAILY 02/16/20 10/18/20 History zinc 50 mg tablet 50 mg PO DAILY 02/16/20 10/18/20 History levothyroxine 50 mcg tablet 50 mcg PO DAILY #30 tab 08/29/20 10/18/20 Rx cyclobenzaprine 5 mg tablet 5 mg PO BID PRN #60 tab 10/03/20 10/18/20 Rx metoprolol succinate 100 mg 100 mg PO BID #60 tab 10/03/20 10/18/20 Rx tablet,extended release 24 hr Patient History Medical History (Updated 10/18/20 @ 22:14 by Timoteo Medellin MD) Anxiety Bowel obstruction Interstitial cystitis Mesenteric adenitis Mixed connective tissue disease Post-surgical hypothyroidism Post-surgical hypothyroidism Surgical History H/O bilateral breast reduction surgery H/O parathyroidectomy H/O right breast biopsy H/O: hysterectomy History of appendectomy History of lithotripsy History of parathyroidectomy History of partial thyroidectomy left side History of salpingoophorectomy S/P bilateral foot surgery arthroscopic--plantar fasciatis S/P cholecystectomy Family History Father Cancer Lung cancer Mother Alzheimer disease Stroke Hypertension Daughter Breast cancer Brother Heart disease Sister Diabetes Hypertension Social History Smoking Status: Never smoker Second Hand Exposure: No; Hx Alcohol Use: Yes Alcohol type: wine Alcohol Intake Frequency: 2-4 x/Month Hx Substance Use: No Preferred Language: Macedonian Client Relationship Executive Required: No Beliefs That Will Affect Care: None marital status: Current Living Situation: Spouse current occupational status: retired How many Children do You have: 1 Feels Safe at Home: Yes Do you think of yourself as: straight/heterosexual Gender Identity: Female Assistive Devices: None Review of Systems Constitutional: no fever and no chills Eyes: no diplopia Ear, Nose, Mouth, Throat: no ear pain Respiratory: no cough and no dyspnea Cardiovascular: no chest pain Gastrointestinal: + abdominal pain and + nausea; no vomiting and no blood in stools Genitourinary: no dysuria, no urinary urgency, no hematuria and no flank pain Musculoskeletal: no back pain Integumentary: no rash Neurologic: no localized weakness Physical Exam Constitutional: well developed and well nourished; no acute distress Eyes: no conjunctival abnormality ENMT: Ears: no hearing impairment Neck: trachea midline Respiratory: normal respiratory effort, lungs clear to auscultation Cardiovascular: Rate/Rhythm: regular rate and regular rhythm Gastrointestinal (Abdomen): Abdomen is soft and nondistended. Bowel sounds are noted to be present. There is no rebound tenderness or guarding. The patient did have pain with palpation in her lower abdomen right greater than left. Musculoskeletal: No calf tenderness Skin: no rashes, warm and dry Neurologic: moves all extremities Psychiatric: A+Ox3, euthymic affect Results & Data ([facility]) Vital Signs (Past 12 Hours) Vital Signs Temp Pulse Resp BP Pulse Ox 10/18/20 20:00 66 14 119/82 96 10/18/20 19:33 78 24 143/81 H 97 10/18/20 18:04 78 25 H 154/100 H 96 10/18/20 16:18 36.8 C 100 H 18 152/101 H 96 PG Care Time/CCT Total # of Minutes Spent Total Time Spent with Patient: Total time spent is greater than 50% in coordination of care (as documented) at patient's floor/unit and/or counseling patient: Coding Level of Care Code 25298 Inpt Consult Level 5 Diagnoses Right sided abdominal pain R10.9
[2020-10-19] MEDS ORDERED: KETOROLAC 30 MG/ML VIAL IV PRN (01:11)
[2020-10-19] MEDS ORDERED: ACETAMINOPHEN 1,000 MG/100 ML VIAL IV PRN (01:11)
[2020-10-19] MEDS ORDERED: diazePAM 5 MG TABLET PO PRN (01:11)
[2020-10-19] MEDS ORDERED: DICLOFENAC SOD 1% GEL 100 GM TUBE EXT PRN (01:11)
[2020-10-19] MEDS ORDERED: ONDANSETRON INJ 2 MG/ML 2 ML VIAL IV PRN (01:11)
[2020-10-19] MEDS ORDERED: CYCLOBENZAPRINE HCL 10 MG TAB PO PRN (01:31)
[2020-10-19] MEDS: METOPROLOL SUCC 50MG EXT REL TAB PO SCH ×3 (01:43→19:54)
[2020-10-19] MEDS: NSS + 20MEQ KCL 20 MEQ/1,000 ML BAG IV SCH ×3 (02:00→17:28)
[2020-10-19] MEDS: diphenhydrAMINE 50 MG/ML VIAL IV PRN (03:27)
[2020-10-19 06:17] LABS: Basophils # (auto) 0.02 K/uL (0-0.2); Basophils % (auto) 0.3 %; Eosinophils # (auto) 0.02 K/uL (0-0.5); Eosinophils % (auto) 0.3 %; Hematocrit (blood only) 37.6 % (37-47); Hemoglobin 12.4 g/dL (12.0-16.0); Immature Granulocytes # (auto) 0.01 K/uL (0.00-0.02); Immature Granulocytes % (auto) 0.1 %; Lymphocytes # (auto) 2.98 K/uL (1.2-3.4); Lymphocytes % (auto) 42.4 %; Mean Corpuscular Hemoglobin 30.4 pg (25-34); Mean Corpuscular Volume 92.2 fL (80-100); Mean Platelet Volume 11.4 fL (7.4-10.4); Monocytes # (auto) 0.67 K/uL (0.11-0.59); Monocytes % (auto) 9.5 %; Neutrophils # (auto) 3.33 K/uL (1.4-6.5); Neutrophils % (auto) 47.4 %; Platelet Count 237 K/uL (130-400); RDW Coefficient of Variation 13.5 % (11.5-14.5); RDW Standard Deviation 45.4 fL (36.4-46.3); Red Blood Count 4.08 M/uL (4.2-5.4); White Blood Count 7.03 K/uL (4.8-10.8)
[2020-10-19] MEDS ORDERED: LEVOTHYROXINE SODIUM 50 MCG TABLET PO SCH (06:30)
[2020-10-19 06:50] LABS: Albumin Level 3.4 gm/dl (3.4-5.0); BUN Creatinine Ratio 20.9 (10-20); Calcium 8.7 mg/dl (8.5-10.1); Creatinine Clr Calc Pharmacy 64.5 ml/min; Est GFR (African American) 79.9 ml/min; Est GFR (Non-African American) 68.9 ml/min
[2020-10-19 06:56] LABS: Bilirubin,Total 0.7 mg/dl (0.2-1); Globulin 3.2 gm/dl (2.5-4.0); Total Protein 6.6 gm/dl (6.4-8.2)
[2020-10-19] MEDS: KETOROLAC TROMETHAMINE 15 MG/ML VIAL IV PRN ×2 (08:32→17:23)
--- NOTE | 2020-10-19 09:01 | Hospitalist Progress Note ---
Date of Service October 19, 2020 Assessment & Plan (1) Right sided abdominal pain: Right-sided abdominal pain/acute right flank pain/calcium oxalate crystals in urine/history of kidney stones- Supposedly had labs at outside facility with lactic elevated to 4.0 but was normal on admission to [facility]. She states she did not get any IVF prior to coming to [facility], although seems very unlikely Patient is status post parathyroidectomy (elevated Ca on admission 10.2 but had been taking doses of HCTZ at home for elevated BP and could be contributing to that --> Improved with IVF) Pain control with toradol, tylenol Checking stool studies, celiac panel (supposedly had this tested x 2018) GI on consult for elevated LFTs (never had prior hx of this) Pain not improved with IV Toradol for IV Tylenol. Lidocaine patches seems to help as well. Could also use Voltaren gel Patient does not want to take narcotic pain medications Urology consulted -- no intervention planned Can d/c IVF if tolerating PO intake Given hx thyroid/parathyroid, checking gastrin? maybe a MEN type syndrome but does not really fit and sounded more celiac/GI/psychosomatic Tolerating diet without increased pain Checking RUQ US, Renal US given pain distribution (2) Acute right flank pain: See above (3) SVT (supraventricular tachycardia): Continue metoprolol succinate 100 mg p.o. twice daily (recently increased to this as an outpatient) (4) Post-surgical hypothyroidism: Continue levothyroxine 50 mcg daily -- she states she had been back up to 100mcg but never on 75mcg or 88mcg per her account Will place her on 75mcg and have her repeat her thyroid function tests as an outpatient in 4 weeks with her PCP (5) Anxiety: Continue diazepam as needed Hydroxyzine added prn HS for sleep tonight --> consider utilizing this in the future as non-addicting and could use possibly 10mg tablets during day as needed Would suggest outpatient follow up with counseling/psych provider as issues as above have been occurring for quite some time (>5 years) (6) H/O parathyroidectomy: Noted (7) Mixed connective tissue disease: Continue usual medications: Cyclobenzaprine, diazepam, diclofenac sodium topically, folic acid. DVT Prophylaxis SCDs AMbulation encouraged Dispo: continued inpatient stay Admission and Anticipated Discharge Date Admission Date: October 18, 2020 Subjective Patient evaluated this afternoon. Pain controlled with Toradol and lidocaine patch currently. Chronic issue but recently not able to eat much. Had diarrhea yesterday but hasn't gone since. Has been seen in the past by Dr. Das and have had scopes approx 5 years ago without issue. No bleeding that she has noticed. Regarding abdominal pain, no prior stool studies, not tested for celiac. She notes daughter with celiac and she had bowel resection due to this issue but she admits she herself loves carbs and eats quite a bit of them when home by herself. She also notes she has HCTZ pills at home to take if needed if elevated blood pressures, which have been higher lately. Did discuss this can also cause elevated calcium. Recently switched Synthroid back to 100mcg but notes alternating between 50 and 100 without doses of 75 or 88mcg in between. Currently on 100mcg. Takes 1/2 hour before meals. Increased Cardizem by [employer] cardiology for her hx SVT. She endorses alternating R abd pain with radiation to left and LLQ discomfort. Radiation to her R back/flank as well. She notes bloating after eating, early satiety. She notes that she has had nausea and vomiting multiple episodes and she has used pepto-bismol at home "so don't be surprised if stool is dark" she notes.' She typically uses miralax at home with relief and we will order her a dose. Chronic back pain, chest discomforts, shortness of breath, anxiety, depression, wanting to know cause and frustration. She also endorses dyspnea on exertion. She would also like something for sleep -- discussed ordering hydroxyzine as non-addicting and can also help with anxiety. TSH was wnl and we will place on 75mcg moving forward and have repeat TFT in 4-6 weeks outpatient. Review of Systems Review of Systems: All systems reviewed & are unremarkable except as noted in HPI & below Physical Exam Constitutional: well developed, well nourished, + obese, cooperative and comfortable; no acute distress Eyes: no conjunctival abnormality ENMT: Ears: no hearing impairment Neck: trachea midline thyroidectomy scar, well healed Respiratory: normal respiratory effort, lungs clear to auscultation Cardiovascular: Rate/Rhythm: regular rate and regular rhythm Heart Sounds: + murmur Vessels: no JVD Extremities: no edema Gastrointestinal (Abdomen): Inspection/Auscultation: normal bowel sounds; abdomen not distended Percussion/Palpation: + abdomen tender (reported LUQ, RLQ>LLQ, and diffusely) and abdomen soft; no guarding and abdomen not rigid Musculoskeletal: No calf tenderness Skin: no rashes, warm and dry Neurologic: moves all extremities Psychiatric: Orientation: alert and oriented x 3 Affect: + anxious affect Lymphatic: no cervical or axillary lymphadenopathy Results & Data Results & Data ([facility]) Vital Signs (Past 12 Hours) Vital Signs Temp Pulse Pulse Resp BP BP Pulse Ox 10/19/20 07:56 36.8 C 57 L 17 125/82 95 10/19/20 01:18 36.8 C 68 16 137/88 96 10/19/20 00:52 20 159/83 H 95 10/19/20 00:01 94 10/19/20 00:00 117/78 94 10/18/20 23:33 98 10/18/20 23:32 18 141/95 H 97 10/18/20 21:30 74 22 167/108 H 96 Laboratory Results 10/19/20 10/19/20 10/19/20 Range/Units 06:05 06:05 06:05 WBC 7.03 (4.8-10.8) K/uL RBC 4.08 L (4.2-5.4) M/uL Hgb 12.4 (12.0-16.0) g/dL Hct 37.6 (37-47) % MCV 92.2 (80-100) fL MCH 30.4 (25-34) pg MCHC 33.0 (32-36) g/dL RDW Std Deviation 45.4 (36.4-46.3) fL RDW Coeff of [place] 13.5 (11.5-14.5) % Plt Count 237 (130-400) K/uL MPV 11.4 H (7.4-10.4) fL Immature Gran % (Auto) 0.1 % Neut % (Auto) 47.4 % Lymph % (Auto) 42.4 % [place] % (Auto) 9.5 % Eos % (Auto) 0.3 % Baso % (Auto) 0.3 % Neut # (Auto) 3.33 (1.4-6.5) K/uL Lymph # (Auto) 2.98 (1.2-3.4) K/uL [place] # (Auto) 0.67 H (0.11-0.59) K/uL Eos # (Auto) 0.02 (0-0.5) K/uL Baso # (Auto) 0.02 (0-0.2) K/uL Immature Gran # (Auto) 0.01 (0.00-0.02) K/uL Sodium 142 (136-145) mmol/L Potassium 4.0 (3.5-5.1) mmol/L Chloride 112 H (98-107) mmol/L Carbon Dioxide 24 (21-32) mmol/L Anion Gap 6.0 (3-11) BUN 18 (7-18) mg/dl Creatinine 0.88 (0.6-1.2) mg/dl Est Cr Clr Drug Dosing 64.5 ml/min Est GFR ( Amer) 79.9 ml/min Est GFR (Non-Af Amer) 68.9 ml/min BUN/Creatinine Ratio 20.9 H (10-20) Glucose 106 H (70-99) mg/dl Lactate (0.4-2.0) mmol/L Calcium 8.7 (8.5-10.1) mg/dl Total Bilirubin 0.7 (0.2-1) mg/dl AST 105 H (15-37) U/L ALT 80 H (12-78) U/L Alkaline Phosphatase 89 (45-117) U/L Troponin I (0-0.045) ng/ml Total Protein 6.6 D (6.4-8.2) gm/dl Albumin 3.4 (3.4-5.0) gm/dl Globulin 3.2 (2.5-4.0) gm/dl Albumin/Globulin Ratio 1.0 (0.9-2) Lipase (73-393) U/L TSH Pending Urine Color Urine Appearance (Clear) Urine pH (4.5-7.5) Ur Specific [place] (1.000-1.030) Urine Protein (Negative) Urine Glucose (UA) (Negative) Urine Ketones (Negative) Urine Blood (Negative) Urine Nitrite (Negative) Urine Bilirubin (Negative) Urine Urobilinogen (Negative) Ur Leukocyte Esterase (Negative) Urine WBC (Auto) (0-5) /hpf Urine RBC (Auto) (0-4) /hpf U Hyaline Cast (Auto) (0-5) /lpf U Epithel Cells (Auto) (0-5) /lpf Urine Bacteria (Auto) (Negative) Urine Crystals Calcium Oxalate Crystal (None Prsent) COVID-19 Eval Order SARS-CoV-2 (PCR) (Negative) Hepatitis C Ab Screen (Neg) 10/18/20 10/18/20 10/18/20 Range/Units 20:16 20:16 17:41 WBC (4.8-10.8) K/uL RBC (4.2-5.4) M/uL Hgb (12.0-16.0) g/dL Hct (37-47) % MCV (80-100) fL MCH (25-34) pg MCHC (32-36) g/dL RDW Std Deviation (36.4-46.3) fL RDW Coeff of [place] (11.5-14.5) % Plt Count (130-400) K/uL MPV (7.4-10.4) fL Immature Gran % (Auto) % Neut % (Auto) % Lymph % (Auto) % [place] % (Auto) % Eos % (Auto) % Baso % (Auto) % Neut # (Auto) (1.4-6.5) K/uL Lymph # (Auto) (1.2-3.4) K/uL [place] # (Auto) (0.11-0.59) K/uL Eos # (Auto) (0-0.5) K/uL Baso # (Auto) (0-0.2) K/uL Immature Gran # (Auto) (0.00-0.02) K/uL Sodium (136-145) mmol/L Potassium (3.5-5.1) mmol/L Chloride (98-107) mmol/L Carbon Dioxide (21-32) mmol/L Anion Gap (3-11) BUN (7-18) mg/dl Creatinine (0.6-1.2) mg/dl Est Cr Clr Drug Dosing ml/min Est GFR ( Amer) ml/min Est GFR (Non-Af Amer) ml/min BUN/Creatinine Ratio (10-20) Glucose (70-99) mg/dl Lactate (0.4-2.0) mmol/L Calcium (8.5-10.1) mg/dl Total Bilirubin (0.2-1) mg/dl AST (15-37) U/L ALT (12-78) U/L Alkaline Phosphatase (45-117) U/L Troponin I (0-0.045) ng/ml Total Protein (6.4-8.2) gm/dl Albumin (3.4-5.0) gm/dl Globulin (2.5-4.0) gm/dl Albumin/Globulin Ratio (0.9-2) Lipase (73-393) U/L TSH Urine Color Dark Yellow Urine Appearance Cloudy A (Clear) Urine pH 6.0 (4.5-7.5) Ur Specific [place] 1.030 (1.000-1.030) Urine Protein Negative (Negative) Urine Glucose (UA) Negative (Negative) Urine Ketones 1+ H (Negative) Urine Blood Negative (Negative) Urine Nitrite Negative (Negative) Urine Bilirubin Negative (Negative) Urine Urobilinogen Negative (Negative) Ur Leukocyte Esterase Negative (Negative) Urine WBC (Auto) 1-5 (0-5) /hpf Urine RBC (Auto) 0-4 (0-4) /hpf U Hyaline Cast (Auto) 1-5 (0-5) /lpf U Epithel Cells (Auto) 10-20 H (0-5) /lpf Urine Bacteria (Auto) 1+ H (Negative) Urine Crystals Not Reportable Calcium Oxalate Crystal Present A (None Prsent) COVID-19 Eval Order Covid19 at [facility] SARS-CoV-2 (PCR) NEGATIVE (Negative) Hepatitis C Ab Screen (Neg) 10/18/20 10/18/20 10/18/20 Range/Units 17:38 17:38 17:38 WBC (4.8-10.8) K/uL RBC (4.2-5.4) M/uL Hgb (12.0-16.0) g/dL Hct (37-47) % MCV (80-100) fL MCH (25-34) pg MCHC (32-36) g/dL RDW Std Deviation (36.4-46.3) fL RDW Coeff of [place] (11.5-14.5) % Plt Count (130-400) K/uL MPV (7.4-10.4) fL Immature Gran % (Auto) % Neut % (Auto) % Lymph % (Auto) % [place] % (Auto) % Eos % (Auto) % Baso % (Auto) % Neut # (Auto) (1.4-6.5) K/uL Lymph # (Auto) (1.2-3.4) K/uL [place] # (Auto) (0.11-0.59) K/uL Eos # (Auto) (0-0.5) K/uL Baso # (Auto) (0-0.2) K/uL Immature Gran # (Auto) (0.00-0.02) K/uL Sodium 142 (136-145) mmol/L Potassium 3.7 (3.5-5.1) mmol/L Chloride 110 H (98-107) mmol/L Carbon Dioxide 24 (21-32) mmol/L Anion Gap 8.0 (3-11) BUN 21 H (7-18) mg/dl Creatinine 1.04 (0.6-1.2) mg/dl Est Cr Clr Drug Dosing 54.5 ml/min Est GFR ( Amer) 65.3 ml/min Est GFR (Non-Af Amer) 56.3 ml/min BUN/Creatinine Ratio 20.3 H (10-20) Glucose 92 (70-99) mg/dl Lactate 1.9 (0.4-2.0) mmol/L Calcium 10.2 H (8.5-10.1) mg/dl Total Bilirubin 0.7 (0.2-1) mg/dl AST 23 (15-37) U/L ALT 28 (12-78) U/L Alkaline Phosphatase 96 (45-117) U/L Troponin I < 0.015 (0-0.045) ng/ml Total Protein 8.3 H (6.4-8.2) gm/dl Albumin 4.1 (3.4-5.0) gm/dl Globulin 4.2 H (2.5-4.0) gm/dl Albumin/Globulin Ratio 1.0 (0.9-2) Lipase 204 (73-393) U/L TSH Urine Color Urine Appearance (Clear) Urine pH (4.5-7.5) Ur Specific [place] (1.000-1.030) Urine Protein (Negative) Urine Glucose (UA) (Negative) Urine Ketones (Negative) Urine Blood (Negative) Urine Nitrite (Negative) Urine Bilirubin (Negative) Urine Urobilinogen (Negative) Ur Leukocyte Esterase (Negative) Urine WBC (Auto) (0-5) /hpf Urine RBC (Auto) (0-4) /hpf U Hyaline Cast (Auto) (0-5) /lpf U Epithel Cells (Auto) (0-5) /lpf Urine Bacteria (Auto) (Negative) Urine Crystals Calcium Oxalate Crystal (None Prsent) COVID-19 Eval Order SARS-CoV-2 (PCR) (Negative) Hepatitis C Ab Screen Neg (Neg) 10/18/20 Range/Units 17:38 WBC 8.07 (4.8-10.8) K/uL RBC 4.69 (4.2-5.4) M/uL Hgb 14.5 (12.0-16.0) g/dL Hct 43.0 (37-47) % MCV 91.7 (80-100) fL MCH 30.9 (25-34) pg MCHC 33.7 (32-36) g/dL RDW Std Deviation 44.6 (36.4-46.3) fL RDW Coeff of [place] 13.4 (11.5-14.5) % Plt Count 273 (130-400) K/uL MPV 11.7 H (7.4-10.4) fL Immature Gran % (Auto) 0.1 % Neut % (Auto) 59.7 % Lymph % (Auto) 30.2 % [place] % (Auto) 9.7 % Eos % (Auto) 0.1 % Baso % (Auto) 0.2 % Neut # (Auto) 4.81 (1.4-6.5) K/uL Lymph # (Auto) 2.44 (1.2-3.4) K/uL [place] # (Auto) 0.78 H (0.11-0.59) K/uL Eos # (Auto) 0.01 (0-0.5) K/uL Baso # (Auto) 0.02 (0-0.2) K/uL Immature Gran # (Auto) 0.01 (0.00-0.02) K/uL Sodium (136-145) mmol/L Potassium (3.5-5.1) mmol/L Chloride (98-107) mmol/L Carbon Dioxide (21-32) mmol/L Anion Gap (3-11) BUN (7-18) mg/dl Creatinine (0.6-1.2) mg/dl Est Cr Clr Drug Dosing ml/min Est GFR ( Amer) ml/min Est GFR (Non-Af Amer) ml/min BUN/Creatinine Ratio (10-20) Glucose (70-99) mg/dl Lactate (0.4-2.0) mmol/L Calcium (8.5-10.1) mg/dl Total Bilirubin (0.2-1) mg/dl AST (15-37) U/L ALT (12-78) U/L Alkaline Phosphatase (45-117) U/L Troponin I (0-0.045) ng/ml Total Protein (6.4-8.2) gm/dl Albumin (3.4-5.0) gm/dl Globulin (2.5-4.0) gm/dl Albumin/Globulin Ratio (0.9-2) Lipase (73-393) U/L TSH Urine Color Urine Appearance (Clear) Urine pH (4.5-7.5) Ur Specific [place] (1.000-1.030) Urine Protein (Negative) Urine Glucose (UA) (Negative) Urine Ketones (Negative) Urine Blood (Negative) Urine Nitrite (Negative) Urine Bilirubin (Negative) Urine Urobilinogen (Negative) Ur Leukocyte Esterase (Negative) Urine WBC (Auto) (0-5) /hpf Urine RBC (Auto) (0-4) /hpf U Hyaline Cast (Auto) (0-5) /lpf U Epithel Cells (Auto) (0-5) /lpf Urine Bacteria (Auto) (Negative) Urine Crystals Calcium Oxalate Crystal (None Prsent) COVID-19 Eval Order SARS-CoV-2 (PCR) (Negative) Hepatitis C Ab Screen (Neg) Diagnostic Findings Abdomen/Pelvis CTA 10/18/20 17:46 CT angio abdomen pelvis w con HISTORY: Generalized abdominal pain, elevated lactic acid. Assess for arterial stenosis or ischemic bowel. TECHNIQUE: Multiaxial CT images of the abdomen and pelvis were performed foll owing the use of intravenous contrast to evaluate the major dural structures. Maximal intensity projection images were performed at the workstation by the radiologist. COMPARISON STUDY: Abdomen and pelvis CT 03/12/2019. FINDINGS: The lung bases are essentially clear. No pneumoperitoneum. No pneumatosis. No suspicious lytic or blastic osseous lesions. Stable 9 mm hypodense lesion within the right hepatic lobe. This is likely too small to characterize but favors a cyst given the long-term stability. Prior cholecystectomy. Multiple calcified splenic granulomas. The adrenal glands and pancreas are unremarkable. No retroperitoneal lymphadenopathy. The kidneys enhance normally. No hydronephrosis. Left peripelvic renal cyst is again noted and remains unchanged. Normal bladder. The uterus is surgically absent. No pelvic free fluid. Colonic diverticulosis. No CT evidence for acute diverticulitis. No bowel wall thickening or obstruction. Prior appendectomy. Mild calcified plaque within the abdominal aorta. No evidence for an abdominal aortic aneurysm or dissection. The iliac arteries are normal in course and caliber. The celiac, superior mesenteric, inferior mesenteric, and bilateral renal arteries show no significant stenosis, occlusion, or dissection. IMPRESSION: 1. No bowel wall thickening or obstruction. 2. Colonic diverticulosis. No evidence for acute diverticulitis. 3. The major arterial structures are widely patent. No arterial dissection or aneurysm identified. 4. Postoperative changes as described above. ACT 112: Negative or not required by law. Electronically signed by: Wayne Weinberg M.D. 10/18/2020 7:39 PM PG Care Time/CCT Total # of Minutes Spent Total Time Spent with Patient: Total time spent is greater than 50% in coordination of care (as documented) at patient's floor/unit and/or counseling patient: Prolonged Care Time Prolonged Care Time: Yes Total Prolonged Care Time: 45 additional time spent at bedside with patient Coding Level of Care Code 33882 Subseq Obs Care Lvl 3 Diagnoses Right sided abdominal pain R10.9 Acute right flank pain R10.9 SVT (supraventricular tachycardia) I47.1 Post-surgical hypothyroidism E89.0 Anxiety F41.9 H/O parathyroidectomy Z90.09 Mixed connective tissue disease M35.1 Additional Codes Prolonged Care Time - Prolonged Care Time: Yes ([id number])
--- NOTE | 2020-10-19 10:11 | XRay Report ---
SINGLE VIEW CHEST CLINICAL HISTORY: Atypical chest pain. FINDINGS: An AP, portable, upright chest radiograph is compared to study dated 06/18/2014. Correlation is made with chest CT dated 06/14/2014. The cardiomediastinal silhouette is unremarkable. The lungs an d pleural spaces are clear. No pneumothorax is seen. The bony thorax is grossly intact. IMPRESSION: No active disease in the chest. ACT 112: Negative or not required by law. Electronically signed by: Richi Parjapati M.D. 10/19/2020 10:09 AM
[2020-10-19] MEDS: MULTIVITAMIN TAB PO SCH (11:03)
[2020-10-19] MEDS: CYANOCOBALAMIN 500 MCG TABLET (VITAMIN B-12) PO SCH (11:04)
[2020-10-19] MEDS: CHOLECALCIFEROL 1,000 UNITS 25 MCG TAB PO SCH (11:04)
[2020-10-19] MEDS: ZINC SULFATE 220 MG CAPSULE PO SCH (11:04)
[2020-10-19] MEDS: FOLIC ACID 400 MCG TAB PO SCH (11:04)
[2020-10-19] MEDS: LIDOCAINE 5% 1 PATCH TD SCH (11:06)
--- NOTE | 2020-10-19 11:48 | Ultrasound Report ---
ULTRASOUND RIGHT UPPER QUADRANT ABDOMEN CLINICAL HISTORY: Right-sided abdominal pain. Elevated hepatic transaminases. COMPARISON STUDY: Abdominal CT dated 10/18/2020. TECHNIQUE: Real-time, grayscale, and color flow sonography of the right upper quadrant of the abdomen was performed. Images are reviewed in the transverse and longitudinal planes. FINDINGS: Liver: The liver is normal in size and echotexture. There is no intrahepatic biliary ductal dilatatio n. The main portal vein is patent. Gallbladder: The gallbladder is surgically absent. The common bile duct measures up to 0.4 cm in diam eter. Pancreas: Visualized portions of the pancreatic head and body are normal in appearance. Right kidney: Survey images of the right kidney demonstrate normal size and echotexture. There is no hydronephrosis. Ascites: None. IMPRESSION: Unremarkable sonographic assessment of the right upper quadrant noting status post cholec ystectomy. ACT 112: Negative or not required by law. Electronically signed by: Richi Prajapati M.D. 10/19/2020 11:47 AM
--- NOTE | 2020-10-19 11:50 | Ultrasound Report ---
ULTRASOUND KIDNEYS AND BLADDER CLINICAL HISTORY: Hypercalcemia. Reported history of nephrolithiasis. COMPARISON STUDY: Abdominal CT dated 10/18/2020 TECHNIQUE: Real-time, grayscale, and color flow sonography of the kidneys and bladder is performed. I mages are reviewed in the transverse and longitudinal planes. FINDINGS: Kidneys: The kidneys are normal in size and echotexture. The right kidney measures 9.9 cm in length a nd the left kidney measures 10.3 cm in length. There is no hydronephrosis. No shadowing renal calculi are identified. Peripelvic cysts are noted on the left. There is no sonographic evidence of contour deforming renal mass lesion. No perinephric fluid is identified. Bladder: The bladder is decompressed and could not be assessed. IMPRESSION: 1. Unremarkable sonographic assessment of the kidneys. 2. The bladder was decompressed and could not be evaluated. ACT 112: Negative or not required by law. Electronically signed by: Richi Prajapati M.D. 10/19/2020 11:49 AM
[2020-10-19] MEDS ORDERED: hydrOXYzine HCl 25 MG TAB PO PRN (16:32)
[2020-10-19] MEDS ORDERED: LEVOTHYROXINE SODIUM 75 MCG TABLET PO SCH (16:33)
--- NOTE | 2020-10-19 17:44 | Gastrointestinal Consultation ---
Date of Consultation October 19, 2020 Assessment & Plan (1) Right sided abdominal pain: The chronicity of her symptoms, coupled with absence of alarm symptoms or recent change suggests functional pain. Will check celiac serologies, although bx neg for this in 2019, and CRP; will also refer to pain management for trigger point injection. She hsa not wanted to pursue medication trials in the past. I have no further testing to offer her, and have encouraged her to seek a second opinion if she wishes to pursue further testing for organic etiologies of her pain. Regarding elevated LFT's -- Pt with no prior h/o abnl LFTs, and does report recent APAP usage. Recheck tomorrow, avoid APAP. Can pursue further w/u if persistently increased. Please call us with questions. History of Present Illness Attending Physician: Matt Ko MD Pt with chronic long standing lower abdominal pain now admit when noted to have elevated lactate as outpt, complaining of same pain. Pt tells me that her chronic pain is unchanged, and is long standing. She describes it in a similar way as documented in my notes from several years ago - lower abdomen, R> L, cramping. She underwent non con CT yesterday that was unremarkable, contrast CTA that was unremarkable. She has no alarm symptoms- no weight loss (she reports persistent weight gain and increased appetite), food intolerance, no recent change in pain. She does report some symptoms of depression, and feels socially isolated. Allergies Allergy/AdvReac Type Severity Reaction Status Date / Time Opioids - Morphine Analogues Allergy Severe severe Verified 10/18/20 18:54 rask chest tightness oxycodone [From Percocet] Allergy Intermediate rash Verified 10/18/20 18:54 duloxetine [From Cymbalta] AdvReac Intermediate "JITTERY" Verified 10/18/20 18:54 morphine AdvReac Intermediate CHEST PAIN Verified 10/19/20 01:27 levofloxacin AdvReac Mild Headache Verified 10/19/20 01:27 Home Medications Medication Instructions Recorded Confirmed Type diazepam 5 mg PO Q12 PRN 03/12/19 10/18/20 History diclofenac sodium 2 g TOPICAL QID PRN 03/12/19 10/18/20 History ascorbic acid (vitamin C) 500 mg 500 mg PO DAILY 02/16/20 10/18/20 History tablet cholecalciferol (vitamin D3) 25 25 mcg PO DAILY 02/16/20 10/18/20 History mcg (1,000 unit) capsule folic acid 400 mcg tablet 0.4 mg PO DAILY 02/16/20 10/18/20 History mecobalamin (vitamin B12) 1,000 1,000 mcg SUBLINGUAL DAILY 02/16/20 10/18/20 History mcg disintegrating tablet,sublingual multivitamin 1 tab PO DAILY 02/16/20 10/18/20 History zinc 50 mg tablet 50 mg PO DAILY 02/16/20 10/18/20 History levothyroxine 50 mcg tablet 50 mcg PO DAILY #30 tab 08/29/20 10/18/20 Rx cyclobenzaprine 5 mg tablet 5 mg PO BID PRN #60 tab 10/03/20 10/18/20 Rx metoprolol succinate 100 mg 100 mg PO BID #60 tab 10/03/20 10/18/20 Rx tablet,extended release 24 hr hydrochlorothiazide 10/19/20 History Patient History Medical History (Updated 10/18/20 @ 22:14 by Timoteo Medellin MD) Anxiety Bowel obstruction Interstitial cystitis Mesenteric adenitis Mixed connective tissue disease Post-surgical hypothyroidism Post-surgical hypothyroidism Surgical History H/O bilateral breast reduction surgery H/O parathyroidectomy H/O right breast biopsy H/O: hysterectomy History of appendectomy History of lithotripsy History of parathyroidectomy History of partial thyroidectomy left side History of salpingoophorectomy S/P bilateral foot surgery arthroscopic--plantar fasciatis S/P cholecystectomy Family History Father Cancer Lung cancer Mother Alzheimer disease Stroke Hypertension Daughter Breast cancer Brother Heart disease Sister Diabetes Hypertension Social History Smoking Status: Never smoker Second Hand Exposure: No; Hx Alcohol Use: Yes Alcohol type: wine Alcohol Intake Frequency: 2-4 x/Month Hx Substance Use: No Preferred Language: Citizen Of [place] 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 Beliefs That Will Affect Care: None marital status: Current Living Situation: Spouse current occupational status: retired How many Children do You have: 1 Feels Safe at Home: Yes Do you think of yourself as: straight/heterosexual Gender Identity: Female Assistive Devices: None Physical Exam Physical Exam: Appears comfortable, pleasant Respiratory: normal respiratory effort, lungs clear to auscultation normal respiratory effort Cardiovascular: RRR, no murmur, no edema Gastrointestinal (Abdomen): Mild focal tenderness in RLQ, otherwise unremarkable exam Results & Data ([facility]) Vital Signs (Past 12 Hours) Vital Signs Temp Pulse Resp BP Pulse Ox 10/19/20 15:32 36.7 C 68 20 143/89 H 95 10/19/20 07:56 36.8 C 57 L 17 125/82 95
[2020-10-20] MEDS: KETOROLAC TROMETHAMINE 15 MG/ML VIAL IV PRN ×2 (00:30→08:17)
[2020-10-20] MEDS: diphenhydrAMINE 50 MG/ML VIAL IV PRN (01:22)
[2020-10-20 05:48] LABS: Hematocrit (blood only) 37.9 % (37-47); Hemoglobin 12.5 g/dL (12.0-16.0); Mean Corpuscular Hemoglobin 29.9 pg (25-34); Mean Corpuscular Volume 90.7 fL (80-100); Mean Platelet Volume 11.3 fL (7.4-10.4); Platelet Count 216 K/uL (130-400); RDW Coefficient of Variation 13.5 % (11.5-14.5); RDW Standard Deviation 44.5 fL (36.4-46.3); Red Blood Count 4.18 M/uL (4.2-5.4); White Blood Count 5.36 K/uL (4.8-10.8)
[2020-10-20 06:21] LABS: Albumin Level 3.2 gm/dl (3.4-5.0); BUN Creatinine Ratio 16.2 (10-20); Calcium 8.3 mg/dl (8.5-10.1); Creatinine Clr Calc Pharmacy 77.8 ml/min; Est GFR (African American) 100.2 ml/min; Est GFR (Non-African American) 86.4 ml/min; Potassium 3.6 mmol/L (3.5-5.1)
[2020-10-20 06:22] LABS: Basophils # (auto) 0.01 K/uL (0-0.2); Basophils % (auto) 0.2 %; Eosinophils # (auto) 0.09 K/uL (0-0.5); Eosinophils % (auto) 1.7 %; Immature Granulocytes # (auto) 0.01 K/uL (0.00-0.02); Immature Granulocytes % (auto) 0.2 %; Lymphocytes # (auto) 2.81 K/uL (1.2-3.4); Lymphocytes % (auto) 52.4 %; Monocytes # (auto) 0.45 K/uL (0.11-0.59); Monocytes % (auto) 8.4 %; Neutrophils # (auto) 1.99 K/uL (1.4-6.5); Neutrophils % (auto) 37.1 %
--- NOTE | 2020-10-20 06:22 | Electrocardiogram Report ---
Test Reason : Blood Pressure : / mmHG Vent. Rate : 069 BPM Atrial Rate : 069 BPM P-R Int : 166 ms QRS Dur : 072 ms QT Int : 420 ms P-R-T Axes : 048 014 043 degrees QTc Int : 450 ms Normal sinus rhythm Normal ECG When compared with ECG of 18-JUN-2014 17:19, Vent. rate has decreased BY 37 BPM Confirmed by Fermin Alfaro ([id number]) on 10/20/2020 6:22:13 AM Referred By: Maine Chowdhury Confirmed By:Fermin Alfaro
[2020-10-20 06:28] LABS: Bilirubin,Total 0.4 mg/dl (0.2-1); Globulin 3.2 gm/dl (2.5-4.0); Total Protein 6.4 gm/dl (6.4-8.2)
--- NOTE | 2020-10-20 06:38 | Electrocardiogram Report ---
Test Reason : Blood Pressure : / mmHG Vent. Rate : 070 BPM Atrial Rate : 070 BPM P-R Int : 174 ms QRS Dur : 086 ms QT Int : 438 ms P-R-T Axes : 038 051 057 degrees QTc Int : 473 ms Normal sinus rhythm Normal ECG When compared with ECG of 18-OCT-2020 18:00, No significant change was found Confirmed by Fermin Alfaro ([id number]) on 10/20/2020 6:38:24 AM Referred By: Maine Chowdhury Confirmed By:Fermin Alfaro
--- NOTE | 2020-10-20 08:04 | Hospitalist Progress Note ---
Date of Service October 20, 2020 Assessment & Plan Admission and Anticipated Discharge Date Admission Date: October 18, 2020 Results & Data Results & Data ([facility]) Vital Signs (Past 12 Hours) Vital Signs Temp Pulse Resp BP Pulse Ox 10/19/20 22:46 36.9 C 61 16 131/83 95 PG Care Time/CCT Total # of Minutes Spent Total Time Spent with Patient: Total time spent is greater than 50% in coordination of care (as documented) at patient's floor/unit and/or counseling patient: Coding
--- NOTE | 2020-10-20 09:38 | Discharge Summary ---
Date of Service October 20, 2020 Admission HPI Per Admitting Provider The patient is a 65-year-old female with a past medical history including calculus of kidney, depression, DJD, fibromyalgia, generalized anxiety disorder, interstitial cystitis, ITP, lymphedema of arm, MCTD, mixed hyperlipidemia, MATHIS, osteoporosis, idiopathic peripheral neuropathy, panic attack, plantar fasciitis, reflux, renal colic, and hyperparathyroidism status post parathyroidectomy. She presents with the above symptoms. She had been assessed at her physician's office with outpatient laboratories and a CT scan which did not show any signs of urinary obstruction or any other acute process. Her laboratory work-up showed a normal CBC and chemistry profile, level, but since her lactic acid level was elevated at 4, she was sent to the emergency department here for further assessment. Work-up in the emergency department at [facility] included CT angiography of abdomen pelvis which was negative. Her urinalysis did show calcium oxalate stones, and there was reportedly concern regarding microlithiasis on her outpatient physician, and she was referred for evaluation for admission. Admission Exam Per Admitting Provider The patient is awake, alert and oriented 3, well developed and well nourished, normocephalic and atraumatic, lying in bed and in no acute distress. HEENT--PERRL, EOMI, mucous membranes and oropharynx dry. Neck--supple. No JVD. No bruits. Thyroid normal, trachea midline, no adenopathy. Heart--normal S1 and S2. No murmurs, rubs or gallops. Lungs--clear bilaterally, no respiratory distress, no accessory muscle use. Abdomen--normal bowel sounds and soft. Tender to light touch right flank and right lower abdomen and pelvis. Nondistended Extremities--no cyanosis or clubbing. No edema. Dermatologic--normal skin turgor, normal color, no abnormal lymph nodes, no rash. Neurologic--cranial nerves II through XII grossly intact. Rheumatologic--normal range of motion. Psychiatric--normal affect. Principal Diagnosis Abdominal Pain Discharge Exam Constitutional well developed, well nourished, + obese, cooperative and comfortable; no acute distress Eyes no conjunctival abnormality ENMT Ears: no hearing impairment Neck trachea midline Respiratory normal respiratory effort, lungs clear to auscultation Cardiovascular Rate/Rhythm: regular rate and regular rhythm Heart Sounds: + murmur Vessels: no JVD Extremities: no edema Gastrointestinal (Abdomen) Inspection/Auscultation: normal bowel sounds; abdomen not distended Percussion/Palpation: + abdomen tender (reported diffusely R>L) and abdomen soft; no guarding and abdomen not rigid Musculoskeletal Head/Neck/Chest: normocephalic and head atraumatic Skin cool, dry Neurologic moves all extremities Psychiatric Orientation: alert and oriented x 3 Affect: + anxious affect Genitourinary NO VELAZQUEZ Lymphatic no cervical or axillary lymphadenopathy Discharge Data Allergies Allergy/AdvReac Type Severity Reaction Status Date / Time Opioids - Morphine Analogues Allergy Severe severe Verified 10/18/20 18:54 rask chest tightness oxycodone [From Percocet] Allergy Intermediate rash Verified 10/18/20 18:54 duloxetine [From Cymbalta] AdvReac Intermediate "JITTERY" Verified 10/18/20 18:54 morphine AdvReac Intermediate CHEST PAIN Verified 10/19/20 01:27 levofloxacin AdvReac Mild Headache Verified 10/19/20 01:27 Consultations 10/18/20 20:19 ED Decision to Admit Stat 10/19/20 01:11 Consult Urology Routine 10/19/20 11:32 Consult Gastroenterology Routine 10/19/20 16:56 Consult Pain Management Routine Ordered Studies Abdomen/Pelvis CTA 10/18/20 17:46 CT angio abdomen pelvis w con HISTORY: Generalized abdominal pain, elevated lactic acid. Assess for arterial stenosis or ischemic bowel. TECHNIQUE: Multiaxial CT images of the abdomen and pelvis were performed following the use of intravenous contrast to evaluate the major dural structures. Maximal intensity projection images were performed at the workstation by the radiologist. COMPARISON STUDY: Abdomen and pelvis CT 03/12/2019. FINDINGS: The lung bases are essentially clear. No pneumoperitoneum. No pneumatosis. No suspicious lytic or blastic osseous lesions. Stable 9 mm hypodense lesion within the right hepatic lobe. This is likely too small to characterize but favors a cyst given the long-term stability. Prior cholecystectomy. Multiple calcified splenic granulomas. The adrenal glands and p ancreas are unremarkable. No retroperitoneal lymphadenopathy. The kidneys enhance normally. No hydronephrosis. Left peripelvic renal cyst is again noted and remains unchanged. Normal bladder. The uterus is surgically absent. No pelvic free fluid. Colonic diverticulosis. No CT evidence for acute diverticulitis. No bowel wall thickening or obstruction. Prior appendectomy. Mild calcified plaque within the abdominal aorta. No evidence for an abdominal aortic aneurysm or dissection. The iliac arteries are normal in course and caliber. The celiac, superior mesenteric, inferior mesenteric, and bilateral renal arteries show no significant stenosis, occlusion, or dissection. IMPRESSION: 1. No bowel wall thickening or obstruction. 2. Colonic diverticulosis. No evidence for acute diverticulitis. 3. The major arterial structures are widely patent. No arterial dissection or aneurysm identified. 4. Postoperative changes as described above. ACT 112: Negative or not required by law. Electronically signed by: Wayne Weinberg M.D. 10/18/2020 7:39 PM Liver Ultrasound 10/19/20 08:52 ULTRASOUND RIGHT UPPER QUADRANT ABDOMEN CLINICAL HISTORY: Right-sided abdominal pain. Elevated hepatic transaminases. COMPARISON STUDY: Abdominal CT dated 10/18/2020. TECHNIQUE: Real-time, grayscale, and color flow sonography of the right upper quadrant of the abdomen was performed. Images are reviewed in the transverse and longitudinal planes. FINDINGS: Liver: The liver is normal in size and echotexture. There is no intrahepatic biliary ductal dilatation. The main portal vein is patent. Gallbladder: The gallbladder is surgically absent. The common bile duct measures up to 0.4 cm in diameter. Pancreas: Visualized portions of the pancreatic head and body are normal in appearance. Right kidney: Survey images of the right kidney demonstrate normal size and echotexture. There is no hydronephrosis. Ascites: None. IMPRESSION: Unremarkable sonographic assessment of the right upper quadrant noting status post cholecystectomy. ACT 112: Negative or not required by law. Electronically signed by: Richi Prajapati M.D. 10/19/2020 11:47 AM Renal Ultrasound 10/19/20 08:52 ULTRASOUND KIDNEYS AND BLADDER CLINICAL HISTORY: Hypercalcemia. Reported history of nephrolithiasis. COMPARISON STUDY: Abdominal CT dated 10/18/2020 TECHNIQUE: Real-time, grayscale, and color flow sonography of the kidneys and bladder is performed. Images are reviewed in the transverse and longitudinal planes. FINDINGS: Kidneys: The kidneys are normal in size and echotexture. The right kidney measures 9.9 cm in length and the left kidney measures 10.3 cm in length. There is no hydronephrosis. No shadowing renal calculi are identified. Peripelvic cysts are noted on the left. There is no sonographic evidence of contour deforming renal mass lesion. No perinephric fluid is identified. Bladder: The bladder is decompressed and could not be assessed. IMPRESSION: 1. Unremarkable sonographic assessment of the kidneys. 2. The bladder was decompressed and could not be evaluated. ACT 112: Negative or not required by law. Electronically signed by: Richi Prajapati M.D. 10/19/2020 11:49 AM Chest X-Ray 10/19/20 09:03 SINGLE VIEW CHEST CLINICAL HISTORY: Atypical chest pain. FINDINGS: An AP, portable, upright chest radiograph is compared to study dated 06/18/2014. Correlation is made with chest CT dated 06/14/2014. The cardiomediastinal silhouette is unremarkable. The lungs and pleural spaces are clear. No pneumothorax is seen. The bony thorax is grossly intact. IMPRESSION: No active disease in the chest. ACT 112: Negative or not required by law. Electronically signed by: Richi Prajapati M.D. 10/19/2020 10:09 AM Hospital Course (1) Right sided abdominal pain: Right-sided abdominal pain/acute right flank pain/calcium oxalate crystals in urine/history of kidney stones- Supposedly had labs at outside facility with lactic elevated to 4.0 but was normal on admission to [place]. She states she did not get any IVF prior to coming to [facility], although seems very unlikely and per GI she had been seen at 3 hospitals in past 1-2 days CTAP Angio WITHOUT evidence for ischemia Urology consulted -- no stones, no intervention. outpt f/u Elevated Ca on admission 10.2 which could also cause GI upset, no stones on imaging Of note, she had been taking doses of HCTZ 12.5mg at home for elevated BP and could be contributing to that --> Improved with IVF and BPs stable Wanted to avoid starting another medication d/t sensitivities. Would also rec she take all of her medications to next PCP appt to ensure correct medications given multiple hospitals/providers (Patient is status post parathyroidectomy) Pain controlled with Toradol Tylenol stopped d/t elevated LFTs GI on consult for elevated LFTs (never had prior hx of this) - had been taking Tylenol, trending down on repeat. Checking stool studies, celiac panel (supposedly had this tested x 2018). Educated to try and avoid to see if any improvement but she continued to insist on pancakes for breakfast prior to d/c Of note, she also had hx SVT and had her BB increased to 100mg BID recently by cardiology. 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 that he will be driving her down to see today for further evaluation. Discussed may be best to get second opinion as she had been following with Dr Das for years in the past for similar issues (2) Acute right flank pain: See above (3) SVT (supraventricular tachycardia): Continue metoprolol succinate 100 mg p.o. twice daily (recently increased to this as an outpatient) (4) Post-surgical hypothyroidism: Continue levothyroxine 50 mcg daily -- she states she had been back up to 100mcg but never on 75mcg or 88mcg per her account (although does appear in system this had been sent in the past) Will place her on 75mcg and have her repeat her thyroid function tests as an out patient in 4 weeks with her PCP She states compliance 1/2 hr before meals (5) Anxiety: Continue diazepam as needed Hydroxyzine added prn HS for sleep tonight --> consider utilizing this in the future as non-addicting and could use possibly 10mg tablets during day as needed but she will wait for f/u with PCP Would suggest outpatient follow up with counseling/psych provider as issues as above have been occurring for quite some time (>5 years) (6) H/O parathyroidectomy: Noted (7) Mixed connective tissue disease: Continued usual medications: Cyclobenzaprine, diazepam, diclofenac sodium topically, folic acid. DVT Prophylaxis SCDs, ambulation Discharged with They plan on driving to [place] for second opinion at [facility] Total Time Total Time Spent Total Time Spent (In Minutes): 65 Discharge Plan Discharge Items Patient Disposition: Home - Self-Care Reason For Visit: MICROLITHIASIS, INTRACTABLE ABDOMINAL PAIN Discharge Diagnosis: You have been hospitalized for an acute medical problem. During your stay at [facility], we have made an effort to correct the problem that brought you to the hospital while keeping you as comfortable as possible. Medications were used to bring your condition under control and your discharge instructions will include directions for any medications you should take after leaving the hospital. Please make sure you see your Primary Care Provider as part of your follow up plan. Condition on Discharge: Fair Activity: Resume your previous activity Non-emergency contact: Primary Care Provider Call non-emergency contact if: you have any medication questions, your symptoms worsen and you have a fever Follow-up/Referrals: Maine Chowdhury DO [Primary Care Provider] - 10/23/20 1:00 pm Diet: Heart Healthy Addtl Attending Provider Instructions: You have been hospitalized for abdominal pain, which does appear to be a chronic issue. The good news is, that your labs have been normal (with exception of elevated liver enzymes which are also almost back to normal and likely due to tylenol use). Several labs have been collected and sent out for evaluation but these do take time for results. As discussed, it may be a good idea to avoid gluten for the next couple of weeks to see if this helps your abdominal pain. You should continue on your levothyroxine 75mcg daily and have repeat thyroid function testing in 4 weeks as an outpatient to ensure no further adjustments would need to be made. You have been provided topical lidocaine patches and toradol (similar to ibuprofen) for pain and can continue the patches and ibuprofen as needed at discharge. You should discuss with your primary care provider about alternative medications to use when elevated blood pressure over the HCTZ to prevent elevated calcium levels which can worsen constipation and cause some GI upset as well. You can utilize hydroxyzine as needed 2-3 times daily for anxiety and also to help with sleep. This prescription has already been sent in by your PCP but if you need refills, please call. As discussed, your is picking you up for evaluation elsewhere, and prescriptions were not sent to avoid extra medications/confusions if anything added by providers at [facility], but your information will be sent to your PCP and they can send anything needed based on further evaluations. It may not be a bad ideal for evaluation by allergy/immunology for food sensitivity testing as this could possibly reveal underlying issue. Please follow up with your primary care provider at discharge from hospital. Pending Studies at Discharge: Yes Studies:: Celiac, CMV, Hepatitis panel, Gastrin Level, stool studies Stand-Alone Forms: My [facility] [employer], Smoking Cessation Medications and DC Order Prescriptions: New hydroxyzine HCl 25 mg Tablet 25 mg PO HS PRN (Reason: sleep, anxiety) Qty: 30 RF: 0 lidocaine 5 % Adhesive Patch,Medicated 1 patch transdermal QAM Qty: 1 RF: 0 Continued levothyroxine 50 mcg tablet 50 mcg PO DAILY Qty: 30 RF: 5 cyclobenzaprine 5 mg tablet 5 mg PO BID PRN (Reason: muscle spasm) Qty: 60 RF: 0 metoprolol succinate 100 mg tablet extended release 24 hr 100 mg PO BID Qty: 60 RF: 2 multivitamin Tablet 1 tab PO DAILY RF: 0 ascorbic acid (vitamin C) 500 mg tablet 500 mg PO DAILY RF: 0 mecobalamin (vitamin B12) 1,000 mcg tablet,disintegrating 1,000 mcg sublingual DAILY RF: 0 cholecalciferol (vitamin D3) 25 mcg (1,000 unit) capsule 25 mcg PO DAILY RF: 0 folic acid 400 mcg tablet 0.4 mg PO DAILY RF: 0 zinc 50 mg tablet 50 mg PO DAILY RF: 0 diazepam 5 mg tablet 5 mg PO Q12 PRN (Reason: Anxiety) RF: 0 diclofenac sodium 1 % gel 2 g TOPICAL QID PRN (Reason: Pain) RF: 0 hydrochlorothiazide 12.5 mg tablet RF: 0 Discharge Orders: Discharge Order (Routine); Ordered 10/20/20 Ordered By: Velia Westbrook Admission Data Admit Date/Time: 10/18/20 21:22 Attending Provider: Matt Ko Admit Provider: Timoteo Medellin Primary Care Provider: Maine Chowdhury Other Providers: Timoteo Medellin ; Wojciech Topete ; Terrance Das ; Lyly Peoples Other Interventions: Discharge Summary Assessment (RN) Last Done: 10/20/20 10:20 Coding Level of Care Code 93183 OBS Care - Discharge Diagnoses Right sided abdominal pain R10.9 Acute right flank pain R10.9 SVT (supraventricular tachycardia) I47.1 Post-surgical hypothyroidism E89.0 Anxiety F41.9 H/O parathyroidectomy Z90.09 Mixed connective tissue disease M35.1
[2020-10-20] MEDS: LIDOCAINE 5% 1 PATCH TD SCH (09:44)
[2020-10-20] MEDS: MULTIVITAMIN TAB PO SCH (09:46)
[2020-10-20] MEDS: FOLIC ACID 400 MCG TAB PO SCH (09:46)
[2020-10-20] MEDS: ZINC SULFATE 220 MG CAPSULE PO SCH (09:46)
[2020-10-20] MEDS: CYANOCOBALAMIN 500 MCG TABLET (VITAMIN B-12) PO SCH (09:46)
[2020-10-20] MEDS: CHOLECALCIFEROL 1,000 UNITS 25 MCG TAB PO SCH (09:46)
[2020-10-20] MEDS: METOPROLOL SUCC 50MG EXT REL TAB PO SCH (09:46)
[2020-10-21 09:47] LABS: Vitamin D, 25 Hydrox 40.5 ng/ml (30-100)
[2020-10-21 09:58] LABS: Hepatitis B Surf Ag Rflx Conf Neg (Neg)
[2020-10-21 10:26] LABS: Hepatitis C IgG 13Yrs+Old_Rflx Neg (Neg)
[2020-10-22 13:47] LABS: CMV IgG Antibody >10.00 U/mL; CMV IgM Antibody <30.00 AU/mL; Hepatitis A Antibody IgM NON-REACTIVE (NON-REACTIVE); Hepatitis B Core Antibody IgM NON-REACTIVE (NON-REACTIVE)
[2020-10-22 23:11] LABS: IgA Serum 365 mg/dL (70-320); Tis Trans IgA 1 U/mL
== END 2020-10-20 11:59 | disposition home or self-care (01) ==
LOC: 3E 16:04 → ED 16:04 → SUATTDRO 21:22 → 3E 10-19 01:01

== ENCOUNTER 2021-09-30 12:08 | Observation (INO) ==
[2021-09-30 13:04] LABS: Basophils # (auto) 0.02 K/uL (0-0.2); Basophils % (auto) 0.2 %; Eosinophils # (auto) 0.04 K/uL (0-0.5); Eosinophils % (auto) 0.5 %; Hematocrit (blood only) 42.3 % (37-47); Hemoglobin 14.1 g/dL (12.0-16.0); Immature Granulocytes # (auto) 0.01 K/uL (0.00-0.02); Immature Granulocytes % (auto) 0.1 %; Lymphocytes # (auto) 2.19 K/uL (1.2-3.4); Lymphocytes % (auto) 26.6 %; Mean Corpuscular Hemoglobin 30.6 pg (25-34); Mean Corpuscular Hgb Conc 33.3 g/dL (32-36); Mean Corpuscular Volume 91.8 fL (80-100); Mean Platelet Volume 11.2 fL (7.4-10.4); Monocytes # (auto) 0.75 K/uL (0.11-0.59); Monocytes % (auto) 9.1 %; Neutrophils # (auto) 5.21 K/uL (1.4-6.5); Neutrophils % (auto) 63.5 %; Platelet Count 299 K/uL (130-400); RDW Coefficient of Variation 13.7 % (11.5-14.5); RDW Standard Deviation 45.9 fL (36.4-46.3); Red Blood Count 4.61 M/uL (4.2-5.4); White Blood Count 8.22 K/uL (4.8-10.8)
[2021-09-30 13:12] LABS: Partial Thromboplastin Ratio 0.8; Partial Thromboplastin Time 22.5 Seconds (21.0-31.0); Prothrombin Time 10.3 Seconds (9.0-12.0)
[2021-09-30 13:29] LABS: Alanine Aminotransferase 16 U/L (7-52); Albumin Globulin Ratio 1.4 (0.9-2); Albumin Level 4.5 gm/dl (3.4-5.0); Alkaline Phosphatase 81 U/L (34-104); Anion Gap 15 (3-11); BUN Creatinine Ratio 13.8 (10-20); Bilirubin,Total 0.7 mg/dl (0.2-1.0); Blood Urea Nitrogen 13 mg/dl (6-23); Calcium 9.3 mg/dl (8.5-10.1); Carbon Dioxide 18 mmol/L (21-32); Chloride 107 mmol/L (98-107); Est GFR (African American) 73.3 ml/min; Est GFR (Non-African American) 63.2 ml/min; Globulin 3.3 gm/dl (2.5-4.0); Glucose 127 mg/dl (70-99(Fasting)); Sodium 140 mmol/L (136-145); Total Protein 7.8 gm/dl (6.0-8.3); Troponin I High Sensitivity 4.3 pg/ml (0-14)
[2021-09-30] MEDS ORDERED: SODIUM CHLORIDE 0.9% 1000ML 1,000 ML IV ONE (13:33)
--- NOTE | 2021-09-30 13:36 | XRay Report ---
XR chest 2V PA/lateral CLINICAL HISTORY: Atypical chest pain TECHNIQUE: 2 views of the chest were obtained. Comparison: Comparison is made to chest radiograph 10/19/2020 FINDINGS: No lines and tubes are seen. The cardiomediastinal silhouette is normal. The lungs are clear. No evid ence of pleural effusion or pneumothorax. IMPRESSION: No acute chest disease. ACT 112: Negative or not required by law. Electronically signed by: Nick Trivedi M.D. 09/30/2021 1:35 PM
[2021-09-30 13:45] LABS: Potassium 3.9 mmol/L (3.5-5.1)
[2021-09-30 13:46] LABS: Aspartate Aminotransferase 20 U/L (13-39)
--- NOTE | 2021-09-30 13:58 | Emergency Department Note ---
Impression & Plan Heart palpitations, Anxiety, Tachycardia, Syncope ED Provider Note HeadNAME: LUIS TOWNSEND AGE: 66 SEX: F : 1955 ARRIVES VIA: Walk-In INFORMANT: Patient, ED PROVIDER(S): Reginald Parr DO CHIEF COMPLAINT: Palpitations HPI: The patient is a 66-year-old female who presented to the emergency department for an evaluation of palpitations. The patient states that she has noticed that her heart rate is very high. She does have a history of thyroid surgery approximately a year ago. She has been following with cardiology. She has had an echocardiogram. She even had a internet marketing consultant done. She called the office today because of her symptoms and was referred to the emergency department for possible atrial fibrillation. She denies having any lower extremity swelling or pain. She does complain of some shortness of breath as well as dyspnea on exertion especially with her heart rate going high. She denies having any fever. She denies having any weight loss. She states that her symptoms are moderate to severe at this time. They do relieved somewhat with rest. She also took Valium today because of anxiety. She thinks that this helped her symptoms as well. ROS: See above HPI for pertinent positives & negatives. A total of 10 systems reviewed and were otherwise negative. PAST MEDICAL HISTORY: See Below PAST SURGICAL HISTORY: See Below FAMILY HISTORY: See Below SOCIAL HISTORY: See Below HOME MEDICATIONS: See Below ALLERGIES: See Below VITALS: See Below PHYSICAL EXAMINATION: GENERAL: The patient is awake and alert. The patient somewhat anxious appearing. EYES: The conjunctivae are clear. The pupils are round and reactive. EARS, NOSE, MOUTH AND THROAT: The nose is without any evidence of any deformity. NECK: The neck is nontender and supple. RESPIRATORY: Normal respiratory effort is noted there is no evidence of wheezing rhonchi or rales CARDIOVASCULAR: Tachycardic and regular heart sounds were noted auscultation. There is no definite murmur. GASTROINTESTINAL: The abdomen is soft. Abdomen is nontender. MUSCULOSKELETAL/EXTREMITIES: There is no evidence of gross deformity full range of motion is noted in the hips and shoulders. SKIN: There is no obvious evidence of any rash. There are no petechiae, pallor or cyanosis noted. NEUROLOGIC: Patient is awake alert and oriented x3 strength is symmetric patellar reflexes are 2+ bilaterally MEDICAL DECISION MAKING: The patient is a 66-year-old female who presented to the emergency department with palpitations. The patient was found to have tachycardia. Normal oxygen saturation but did complain of shortness of breath. Her significant other reports that she is having syncope related to this palpitations and dysrhythmia. She checked her pulse this morning and it was 159. She had the dysrhythmia in the emergency department. She was sinus tachycardia. She was treated with Ativan in the emergency department. Her bicarb was low and I feel that this co uld be related to hyperventilation although the patient does have some anxiety other causes were investigated. I discussed the patient's condition with the director of technology who manages her. At this time the patient is not comfortable being discharged home. For this reason I discussed her case with the on-call [facility]. Triage Nursing notes reviewed. Prior medical records reviewed Vital Signs: reviewed and remarkable for tachycardia. Differential diagnosis: Premature contractions, electrolyte abnormality, cardiac dysrhythmia, thyroid dysfunction, pulmonary embolism, infection, gastrointestinal, as well as other pathologies. ER treatment provided: See below Diagnostics interpreted by me: ECG: EKG was obtained in the emergency department. My interpretation is sinus tachycardia at 128 bpm. There is no ectopy. There is no acute ST segment abnormalities noted. This was compared to a tracing from October 19, 2020. There is an increase in the ventricular rate otherwise no specific changes were noted. Cardiac Monitoring: An order was placed for continuous cardiac monitoring. The monitor shows a rate of 99 bpm with sinus rhythm. Laboratory studies: As stated above and show below. Imaging studies: See below Consultation(s): I discussed this patient with Dr Reyes. I discussed this case with Enrrique who is on for the [facility]. Past Med/Surg History Medical History Hypertension Interstitial cystitis Mesenteric adenitis Post-surgical hypothyroidism Surgical History H/O bilateral breast reduction surgery H/O parathyroidectomy H/O right breast biopsy H/O: hysterectomy History of appendectomy History of lithotripsy History of parathyroidectomy History of partial thyroidectomy left side History of salpingoophorectomy S/P bilateral foot surgery arthroscopic--plantar fasciatis S/P cholecystectomy Family History Father Cancer Lung cancer Mother Alzheimer disease Stroke Hypertension Daughter Breast cancer Brother Heart disease Sister Diabetes Hypertension Social History Smoking Status: Never smoker Second Hand Exposure: No; Hx Alcohol Use: Yes Alcohol type: wine Alcohol Intake Frequency: 2-4 x/Month Hx Substance Use: No Preferred Language: Serbian Tunneller Required: No Beliefs That Will Affect Care: None marital status: Current Living Situation: Spouse current occupational status: retired How many Children do You have: 1 Feels Safe at Home: Yes Seatbelt Use: always Do you think of yourself as: straight/heterosexual Gender Identity: Female Assistive Devices: None Allergies Allergies Allergy/AdvReac Type Severity Reaction Status Date / Time hydromorphone [From Dilaudid] Allergy Severe chest Verified 09/25/21 15:01 pains , rash Opioids - Morphine Analogues Allergy Severe severe Verified 09/25/21 15:01 rask chest tightness oxycodone [From Percocet] Allergy Intermediate rash Verified 09/25/21 15:01 duloxetine [From Cymbalta] AdvReac Intermediate "JITTERY" Verified 09/25/21 15:01 morphine AdvReac Intermediate CHEST PAIN Verified 09/25/21 15:01 levofloxacin AdvReac Mild Headache Verified 09/25/21 15:01 Home Meds Home Medications Medication Instructions Recorded Confirmed ascorbic acid (vitamin C) 500 mg 500 mg PO DAILY 02/16/20 09/25/21 tablet folic acid 400 mcg tablet 0.4 mg PO DAILY 02/16/20 09/25/21 mecobalamin (vitamin B12) 1,000 1,000 mcg SUBLINGUAL DAILY 02/16/20 09/25/21 mcg disintegrating tablet,sublingual multivitamin 1 tab PO DAILY 02/16/20 09/25/21 zinc 50 mg tablet 50 mg PO DAILY 02/16/20 09/12/21 levothyroxine 100 mcg tablet 50 mcg PO DAILY tab 09/12/21 09/25/21 hydroxychloroquine 200 mg tablet 200 mg PO DAILY 09/25/21 09/25/21 cholecalciferol (vitamin D3) 25 50 mcg PO DAILY cap 09/26/21 09/26/21 mcg (1,000 unit) capsule Previous Rx's Medication Instructions Recorded evening primrose oil 500 mg capsule 500 mg PO TID #90 cap 06/02/21 metoprolol succinate 100 mg 100 mg PO DAILY #60 tab 06/19/21 tablet,extended release 24 hr amlodipine 10 mg tablet 10 mg PO DAILY #90 tab 07/11/21 diclofenac sodium 1 % topical gel 2 g TOPICAL QID PRN #100 g 09/01/21 Results & Data (ED) Vital Signs Vital Signs - 24 hr 09/30/21 12:11 09/30/21 14:08 09/30/21 14:30 Temperature 36.8 C Temperature Source Temporal Artery Scan Pulse Rate 138 H 109 H 98 H Pulse Rate from SpO2 Sensor 109 H 95 H Pulse Rhythm Regular Respiratory Rate 18 18 18 Respiratory Effort / Characteristics Non-Labored Spontaneous Respiratory Depth Normal Respiratory Pattern Regular Blood Pressure 147/122 H 141/88 H Blood Pressure Mean 130 105 Blood Pressure Position Sitting Pulse Oximetry 95 97 98 Oxygen Delivery Method Room Air Sepsis Recent Fever Within 48 Hours No Sepsis New/Unexplained Change in Mental Status No Sepsis Action Taken by Nursing No Action Required 09/30/21 15:00 09/30/21 15:30 09/30/21 16:00 Temperature Temperature Source Pulse Rate 90 94 H 99 H Pulse Rate from SpO2 Sensor Pulse Rhythm Respiratory Rate 22 16 20 Respiratory Effort / Characteristics Respiratory Depth Respiratory Pattern Blood Pressure 136/90 148/97 H Blood Pressure Mean 105 114 Blood Pressure Position Pulse Oximetry 97 97 95 Oxygen Delivery Method Sepsis Recent Fever Within 48 Hours Sepsis New/Unexplained Change in Mental Status Sepsis Action Taken by Nursing 09/30/21 16:03 Temperature Temperature Source Pulse Rate 99 H Pulse Rate from SpO2 Sensor Pulse Rhythm Respiratory Rate 21 Respiratory Effort / Characteristics Respiratory Depth Respiratory Pattern Blood Pressure 119/73 Blood Pressure Mean 88 Blood Pressure Position Pulse Oximetry 95 Oxygen Delivery Method Sepsis Recent Fever Within 48 Hours Sepsis New/Unexplained Change in Mental Status Sepsis Action Taken by Skilled Nursing Medications Current Medication List: was personally reviewed by me Laboratory Data Attestation: I reviewed the patient's lab results. Result diagrams: 09/30/21 12:33 09/30/21 12:33 Lab Results 09/30/21 09/30/21 09/30/21 Range/Units 12:33 12:33 12:33 WBC 8.22 (4.8-10.8) K/uL RBC 4.61 (4.2-5.4) M/uL Hgb 14.1 (12.0-16.0) g/dL Hct 42.3 (37-47) % MCV 91.8 (80-100) fL MCH 30.6 (25-34) pg MCHC 33.3 (32-36) g/dL RDW Std Deviation 45.9 (36.4-46.3) fL RDW Coeff of [place] 13.7 (11.5-14.5) % Plt Count 299 (130-400) K/uL MPV 11.2 H (7.4-10.4) fL Immature Gran % (Auto) 0.1 % Neut % (Auto) 63.5 % Lymph % (Auto) 26.6 % [place] % (Auto) 9.1 % Eos % (Auto) 0.5 % Baso % (Auto) 0.2 % Neut # (Auto) 5.21 (1.4-6.5) K/uL Lymph # (Auto) 2.19 (1.2-3.4) K/uL [place] # (Auto) 0.75 H (0.11-0.59) K/uL Eos # (Auto) 0.04 (0-0.5) K/uL Baso # (Auto) 0.02 (0-0.2) K/uL Immature Gran # (Auto) 0.01 (0.00-0.02) K/uL PT 10.3 (9.0-12.0) Seconds INR 1.0 (0.9-1.1) APTT 22.5 (21.0-31.0) Seconds PTT Ratio 0.8 D-Dimer 330 (0-500) ug/L FEU Sodium 140 (136-145) mmol/L Potassium 3.9 (3.5-5.1) mmol/L Chloride 107 (98-107) mmol/L Carbon Dioxide 18 L (21-32) mmol/L Anion Gap 15 H (3-11) BUN 13 (6-23) mg/dl Creatinine 0.94 (0.6-1.2) mg/dl Est Cr Clr Drug Dosing Not Reportable Est GFR ( Amer) 73.3 ml/min Est GFR (Non-Af Amer) 63.2 ml/min BUN/Creatinine Ratio 13.8 (10-20) Glucose 127 H (70-99(Fasting)) mg/dl Calcium 9.3 (8.5-10.1) mg/dl Magnesium (1.7-2.4) mg/dl Total Bilirubin 0.7 (0.2-1.0) mg/dl AST 20 (13-39) U/L ALT 16 (7-52) U/L Alkaline Phosphatase 81 (34-104) U/L Troponin I High Sens 4.3 (0-14) pg/ml Total Protein 7.8 (6.0-8.3) gm/dl Albumin 4.5 (3.4-5.0) gm/dl Globulin 3.3 (2.5-4.0) gm/dl Albumin/Globulin Ratio 1.4 (0.9-2) TSH (0.300-4.500) uIu/ml Urine Color Urine Appearance (Clear) Urine pH (4.5-7.5) Ur Specific [place] (1.000-1.030) Urine Protein (Negative) Urine Glucose (UA) (Negative) Urine Ketones (Negative) Urine Blood (Negative) Urine Nitrite (Negative) Urine Bilirubin (Negative) Urine Urobilinogen (Negative) Ur Leukocyte Esterase (Negative) Urine WBC (Auto) (0-5) /hpf Urine RBC (Auto) (0-4) /hpf U Hyaline Cast (Auto) (0-5) /lpf U Epithel Cells (Auto) (0-5) /lpf Urine Bacteria (Auto) (Negative) Urine Crystals Calcium Oxalate Crystal (None Prsent) 09/30/21 09/30/21 09/30/21 Range/Units 12:33 12:33 Unknown WBC (4.8-10.8) K/uL RBC (4.2-5.4) M/uL Hgb (12.0-16.0) g/dL Hct (37-47) % MCV (80-100) fL MCH (25-34) pg MCHC (32-36) g/dL RDW Std Deviation (36.4-46.3) fL RDW Coeff of Tam[place] (11.5-14.5) % Plt Count (130-400) K/uL MPV (7.4-10.4) fL Immature Gran % (Auto) % Neut % (Auto) % Lymph % (Auto) % [place] % (Auto) % Eos % (Auto) % Baso % (Auto) % Neut # (Auto) (1.4-6.5) K/uL Lymph # (Auto) (1.2-3.4) K/uL [place] # (Auto) (0.11-0.59) K/uL Eos # (Auto) (0-0.5) K/uL Baso # (Auto) (0-0.2) K/uL Immature Gran # (Auto) (0.00-0.02) K/uL PT (9.0-12.0) Seconds INR (0.9-1.1) APTT (21.0-31.0) Seconds PTT Ratio D-Dimer (0-500) ug/L FEU Sodium (136-145) mmol/L Potassium (3.5-5.1) mmol/L Chloride (98-107) mmol/L Carbon Dioxide (21-32) mmol/L Anion Gap (3-11) BUN (6-23) mg/dl Creatinine (0.6-1.2) mg/dl Est Cr Clr Drug Dosing Est GFR ( Amer) ml/min Est GFR (Non-Af Amer) ml/min BUN/Creatinine Ratio (10-20) Glucose (70-99(Fasting)) mg/dl Calcium (8.5-10.1) mg/dl Magnesium 1.9 (1.7-2.4) mg/dl Total Bilirubin (0.2-1.0) mg/dl AST (13-39) U/L ALT (7-52) U/L Alkaline Phosphatase (34-104) U/L Troponin I High Sens (0-14) pg/ml Total Protein (6.0-8.3) gm/dl Albumin (3.4-5.0) gm/dl Globulin (2.5-4.0) gm/dl Albumin/Globulin Ratio (0.9-2) TSH 2.331 (0.300-4.500) uIu/ml Urine Color Dark Yellow Urine Appearance Clear (Clear) Urine pH 5.0 (4.5-7.5) Ur Specific [place] 1.023 (1.000-1.030) Urine Protein Trace H (Negative) Urine Glucose (UA) Negative (Negative) Urine Ketones 1+ H (Negative) Urine Blood Negative (Negative) Urine Nitrite Negative (Negative) Urine Bilirubin Negative (Negative) Urine Urobilinogen Negative (Negative) Ur Leukocyte Esterase Negative (Negative) Urine WBC (Auto) 1-5 (0-5) /hpf Urine RBC (Auto) 0-4 (0-4) /hpf U Hyaline Cast (Auto) 1-5 (0-5) /lpf U Epithel Cells (Auto) 20-30 H (0-5) /lpf Urine Bacteria (Auto) Negative (Negative) Urine Crystals Not Reportable Calcium Oxalate Crystal Present A (None Prsent) Administered Medications Discontinued Medications Sodium Chloride (Nss 1000ml) 1,000 mls @ 999 mls/hr IV .[id number] ONE Stop: 09/30/21 14:33 Last Infusion: 09/30/21 15:01 Dose: 0 mls/hr Documented by: [id number] Admin: 09/30/21 14:00 Dose: 999 mls/hr Documented by: [id number] Lorazepam (Lorazepam 2 Mg/1 Ml Vial) 1 mg IV NOW STA; Protocol Stop: 09/30/21 14:45 Last Admin: 09/30/21 14:58 Dose: 1 mg Documented by: [id number] Imaging Data Radiologist's Impression: Chest X-Ray 09/30/21 12:14 XR chest 2V PA/lateral CLINICAL HISTORY: Atypical chest pain TECHNIQUE: 2 views of the chest were obtained. Comparison: Comparison is made to chest radiograph 10/19/2020 FINDINGS: No lines and tubes are seen. The cardiomediastinal silhouette is normal. The lungs are clear. No evidence of pleural effusion or pneumothorax. IMPRESSION: No acute chest disease. ACT 112: Negative or not required by law. Electronically signed by: Nick Trivedi M.D. 09/30/2021 1:35 PM Discharge Plan Visit Data Chief Complaint: Cardiac Assessment Stated Complaint: dizzy,stroke,afib ED Provider: Reginald Parr Discharge Problem: Heart palpitations, Anxiety, Tachycardia, Syncope Patient Disposition: Being Evaluated by Hospitalist Condition: Good Discharge Instructions Aly/Other Patient Handouts: ED Palpitations Activity Restrictions/Additional Instructions: Continue all medications as prescribed. Rest and avoid any strenuous activity. Follow-up with your family doctor as well as her primary director of technology for further evaluation. Forms Stand Alone Forms: My [facility], Virtual Emergency Department, Important Visit Information Prescriptions Prescriptions: No Action evening primrose oil 500 mg capsule 500 mg PO TID Qty: 90 RF: 0 metoprolol succinate 100 mg tablet extended release 24 hr 100 mg PO DAILY Qty: 60 RF: 2 amlodipine 10 mg tablet 10 mg PO DAILY Qty: 90 RF: 3 diclofenac sodium 1 % gel 2 g TOPICAL QID PRN (Reason: Pain) Qty: 100 RF: 3 multivitamin Tablet 1 tab PO DAILY RF: 0 ascorbic acid (vitamin C) 500 mg tablet 500 mg PO DAILY RF: 0 mecobalamin (vitamin B12) 1,000 mcg tablet,disintegrating 1,000 mcg sublingual DAILY RF: 0 folic acid 400 mcg tablet 0.4 mg PO DAILY RF: 0 zinc 50 mg tablet 50 mg PO DAILY RF: 0 cholecalciferol (vitamin D3) 25 mcg (1,000 unit) capsule 50 mcg PO DAILY RF: 0 hydroxychloroquine 200 mg tablet 200 mg PO DAILY RF: 0 levothyroxine 100 mcg tablet 50 mcg PO DAILY RF: 0 Referrals Referrals: Maine Chowdhury DO [Primary Care Provider] - Discharge Problem: Syncope Qualifiers: Syncope type: unspecified Qualified Code(s): R55 - Syncope and collapse
[2021-09-30 14:00] LABS: D Dimer 330 ug/L FEU (0-500)
[2021-09-30] MEDS ORDERED: LORazepam 2 MG/1 ML VIAL IV STA (14:44)
[2021-09-30 14:52] LABS: Appearance Urine Clear (Clear); Bacteria Urine Automated Negative (Negative); Bilirubin Urine Negative (Negative); Blood Urine Negative (Negative); Color Urine Dark Yellow; Epithelial Cell Urine Auto 20-30 /lpf (0-5); Glucose Urine UA Negative (Negative); Ketones Urine 1+ (Negative); Leukocyte Esterase Urine Negative (Negative); Nitrite Urine Negative (Negative); Protein Urine Trace (Negative); RBC Urine Automated 0-4 /hpf (0-4); Specific Gravity Urine 1.023 (1.000-1.030); Urobilinogen Urine Negative (Negative)
[2021-09-30 15:09] LABS: Calcium Oxalate Crystals Urine Present (None Prsent)
--- NOTE | 2021-09-30 18:34 | History & Physical Report ---
Date of Service September 30, 2021 Assessment & Plan (1) Tachycardia: Plan: Currently appears to be a sinus tachycardia- not associated with hypoxia or tachynpena - TSH normal - K+ normal, MG+ 1.9- 2GM Magnesium - Associated with dizziness, and weakness - Will add random cortisol and AM cortisol levels- but as above electrolytes and glucose levels normal - She states she was to have an ECHO at her next cardiology appt- defer to cardiology - Cardiology consult for evaluation of her monitor if they have the records - (2) Anxiety: Plan: It is quite possible that this is driving her symptoms as above - it is very difficulty to get a straight answer - she is currently perseverating on her HR and her HR response to any activity or any change - tremulous to hands - Appears she was on paroxetine in the past and on BuSpar currently- she reports that she has stopped the BuSpar secondary to not liking the feeling. She also later endorsed that she remains taking Valium intermittency- 5mg - Her Valium script was last prescribed in 04/07- but she still has amounts left - Follows with [facility] appears but without much notes of her current therapy - Will place her on Trazodone- SNRI or SSRI be useful, however if she is going to be stopping and starting her medications this would be unhelpful. (3) Hypertension: Plan: Remains on Amlodipine 10mg orally daily (4) Rheumatoid arthritis: Plan: Continue her Hydrochloroquine (5) Post-surgical hypothyroidism: Plan: TSH 2.33 - Continue with her synthroid 50mcg daily (6) Weakness: Plan: Weakness with holding legs up - but is able to get up and ambulate - will send B12 anf folate level- she is on B12 at home - question her medication adherence - without any sensation deficits or other neurological deficits History of Present Illness Primary Care Provider: Miane Hernandez-Neelima Chowdhury, DO 66 YOF with medical history of: Parathyroid resection (left parathyroid adenoma), partial thyroidectomy, HTN, palpitations, impaired fasting glucose, kidney stones, generalized anxiety disorder, RA. Patient comes to the EMD today for complaints of fast HR noted "at home on pulse oximeter reading of 150BPM", she had recently been placed on external monitor that was mailed in last Wednesday and she has been awaiting the results. She endorses that she has called the cardiology office and was told to come into the ER if her HR has been that fast. This has been associated with dizziness, and she also endorses dizziness with each time she stands up. She reports that she had to lower herself down on the stairs last week secondary to her feeling dizzy as she was coming down the st eps. Patient is unable to explain when these occur or if there is any rhythm to them. Today she states this has been associated with dizziness, and nausea. She is quite jitter and anxious appearing as well during examination and interview, although she denies she has any anxiety issues, that she is just worried about her fast HR. In the EMD the patient had ECG done, routine labs to include TSH. These were unremarkable. She reports that she is taking her medications, but stopped taking her Synthroid as result of being concerned that it was too much following her most recent endocrinology appointment. Follow on questioning reveals that she has not been taking her BuSpar as she should and remains with taking Valium. Her also endorses that he is worried that with her HR being so elevated at home he is concerned that she will pass out and is requiring increase attention to prevent her from falling. Patient will be admitted to follow her HR overnight and symptoms. Will add on B12 and folate levels, check random and am cortisol levels, consult cardiology. COVID test on admission is: NEGATIVE Allergies Allergy/AdvReac Type Severity Reaction Status Date / Time hydromorphone [From Dilaudid] Allergy Severe chest Verified 09/30/21 19:38 pains , rash Opioids - Morphine Analogues Allergy Severe severe Verified 09/30/21 19:38 rask chest tightness oxycodone [From Percocet] Allergy Intermediate rash Verified 09/30/21 19:38 duloxetine [From Cymbalta] AdvReac Intermediate "JITTERY" Verified 09/30/21 19:38 morphine AdvReac Intermediate CHEST PAIN Verified 09/30/21 19:38 levofloxacin AdvReac Mild Headache Verified 09/30/21 19:38 Home Medications Medication Instructions Recorded Confirmed Type ascorbic acid (vitamin C) 500 mg 500 mg PO DAILY 02/16/20 09/30/21 History tablet folic acid 400 mcg tablet 0.4 mg PO DAILY 02/16/20 09/30/21 History mecobalamin (vitamin B12) 1,000 1,000 mcg SUBLINGUAL DAILY 02/16/20 09/30/21 History mcg disintegrating tablet,sublingual multivitamin 1 tab PO DAILY 02/16/20 09/30/21 History zinc 50 mg tablet 50 mg PO DAILY 02/16/20 09/30/21 History metoprolol succinate 100 mg 100 mg PO DAILY #60 tab 06/19/21 09/30/21 Rx tablet,extended release 24 hr amlodipine 10 mg tablet 10 mg PO DAILY #90 tab 07/11/21 09/30/21 Rx diclofenac sodium 1 % topical gel 2 g TOPICAL QID PRN #100 g 09/01/21 09/30/21 Rx levothyroxine 100 mcg tablet 50 mcg PO DAILY tab 09/12/21 09/30/21 History hydroxychloroquine 200 mg tablet 200 mg PO DAILY PRN 09/25/21 09/30/21 History cholecalciferol (vitamin D3) 25 50 mcg PO DAILY cap 09/26/21 09/30/21 History mcg (1,000 unit) capsule Nature Balance Sleep 3 1 tab PO HS 09/30/21 09/30/21 History diazepam 5 mg tablet 5 mg PO DAILY PRN 09/30/21 09/30/21 History diphenhydramine 25 1 tab PO HS 09/30/21 09/30/21 History mg-acetaminophen 500 mg tablet (Tylenol PM Extra Strength) evening primrose oil 500 mg capsule 500 mg PO TID PRN 09/30/21 09/30/21 History tamsulosin 0.4 mg capsule 0.4 mg PO DAILY PRN 09/30/21 09/30/21 History Past Med/Surg History Medical History (Updated 09/30/21 @ 18:56 by JOHN Capps) Anxiety Heart palpitations Hypertension Impaired glucose tolerance Interstitial cystitis Mesenteric adenitis Panic attacks Post-surgical hypothyroidism Surgical History H/O bilateral breast reduction surgery H/O parathyroidectomy H/O right breast biopsy H/O: hysterectomy History of appendectomy History of lithotripsy History of parathyroidectomy History of partial thyroidectomy left side History of salpingoophorectomy S/P bilateral foot surgery arthroscopic--plantar fasciatis S/P cholecystectomy Family History Father Cancer Lung cancer Mother Alzheimer disease Stroke Hypertension Daughter Breast cancer Brother Heart disease Sister Diabetes Hypertension Social History Smoking Status: Never smoker Second Hand Exposure: No; Do You Dip or Chew Tobacco: No; Tobacco Cessation Education Requested by Patient: No Hx Alcohol Use: Yes Alcohol type: wine Alcohol Intake Frequency: 2-4 x/Month Hx Substance Use: No Preferred Language: Peruvian Market [employer]igator Required: No Beliefs That Will Affect Care: None marital status: Current Living Situation: Spouse current occupational status: retired How many Children do You have: 1 Other Information That Helps Us Care for You: No Feels Safe at Home: Yes Safety Concerns: Feels Safe At This Time Seatbelt Use: always Do you think of yourself as: straight/heterosexual Gender Identity: Female Assistive Devices: None Review of Systems Review of Systems: REVIEW OF SYSTEMS: Constitutional: No fever, sweats or chills Eyes: (+) blurry vision with her HR increased, ENT: normal hearing, no trouble swallowing Respiratory: No cough, sputum, dyspnea at rest or on exertion Cardiovascular: (+) palpitations, No chest pain, tightness Abdomen: (+) nausea, dry heaves, No pain, nausea, vomiting, diarrhea or constipation Musculoskeletal: (+) knee joint pain, calf pain, swelling Neurologic: (+) balance problems with dizziness, Psychiatric: (+) anxiety Skin: No rash or itch Physical Exam Physical Exam: PHYSICAL EXAM: General: awake, alert, visually anxious and worried appearance to face Head: Normocephalic, atraumatic ENT: PERRL, EOMI, no pharyngeal exudate, mucous membranes moist Neuro: AAO x 3, speech clear and appropriate, strength intact bilaterally upper 5/5, sensation intact bilaterally, peripheral leg weakness with holding legs up, tremulous in hands Chest: equal rise and fall of the chest, no accessory muscle use, no heaves or thrills, Clear to auscultation, on room air, Cardiac: Regular rate and rhythm, telemetry reviewed- regular tachycardic, skin warm dry, cap refill <3 seconds, peripheral pulses +2 no JVD, no murmur, no edema GI: NABS x 4 quadrants, soft, nontender to palpation, no rebound, guarding or tenderness : Spontaneously voiding, no pain, no CVA tenderness, Extremities: Normal inspection, no peripheral edema or erythema, calfs nontender to palpation Psych: anxious and tremulous Skin: no rash or erythema Results & Data Results & Data ([facility]) Vital Signs (Past 12 Hours) Vital Signs Temp Pulse Resp BP Pulse Ox 09/30/21 16:03 99 H 21 119/73 95 09/30/21 16:00 99 H 20 148/97 H 95 09/30/21 15:30 94 H 16 136/90 97 09/30/21 15:00 90 22 97 09/30/21 14:30 98 H 18 141/88 H 98 09/30/21 14:08 109 H 18 97 09/30/21 12:11 36.8 C 138 H 18 147/122 H 95 Laboratory Results Abnormal lab results 09/30/21 09/30/21 09/30/21 Range/Units 12:33 12:33 Unknown MPV 11.2 H (7.4-10.4) fL [place] # (Auto) 0.75 H (0.11-0.59) K/uL Carbon Dioxide 18 L (21-32) mmol/L Anion Gap 15 H (3-11) Glucose 127 H (70-99(Fasting)) mg/dl Urine Protein Trace H (Negative) Urine Ketones 1+ H (Negative) U Epithel Cells (Auto) 20-30 H (0-5) /lpf Calcium Oxalate Crystal Present A (None Prsent) Diagnostic Findings Chest X-Ray 09/30/21 12:14 XR chest 2V PA/lateral CLINICAL HISTORY: Atypical chest pain TECHNIQUE: 2 views of the chest were obtained. Comparison: Comparison is made to chest radiograph 10/19/2020 FINDINGS: No lines and tubes are seen. The cardiomediastinal silhouette is normal. The lungs are clear. No evidence of pleural effusion or pneumothorax. IMPRESSION: No acute chest disease. ACT 112: Negative or not required by law. Electronically signed by: Nick Trivedi M.D. 09/30/2021 1:35 PM Medications Administered Home Medications ascorbic acid (vitamin C) 500 mg tablet 500 mg PO DAILY 02/16/20 [History Confirmed 09/25/21] folic acid 400 mcg tablet 0.4 mg PO DAILY 02/16/20 [History Confirmed 09/25/21] mecobalamin (vitamin B12) 1,000 mcg disintegrating tablet,sublingual 1,000 mcg SUBLINGUAL DAILY 02/16/20 [History Confirmed 09/25/21] multivitamin 1 tab PO DAILY 02/16/20 [History Confirmed 09/25/21] zinc 50 mg tablet 50 mg PO DAILY 02/16/20 [History Confirmed 09/12/21] evening primrose oil 500 mg capsule 500 mg PO TID #90 cap 06/02/21 [Rx Confirmed 09/25/21] metoprolol succinate 100 mg tablet,extended release 24 hr 100 mg PO DAILY #60 tab 06/19/21 [Rx Confirmed 09/25/21] amlodipine 10 mg tablet 10 mg PO DAILY #90 tab 07/11/21 [Rx Confirmed 09/25/21] diclofenac sodium 1 % topical gel 2 g TOPICAL QID PRN #100 g 09/01/21 [Rx Confirmed 09/25/21] levothyroxine 100 mcg tablet 50 mcg PO DAILY tab 09/12/21 [History Confirmed 09/25/21] hydroxychloroquine 200 mg tablet 200 mg PO DAILY 09/25/21 [History Confirmed 09/25/21] cholecalciferol (vitamin D3) 25 mcg (1,000 unit) capsule 50 mcg PO DAILY cap 09/26/21 [History Confirmed 09/26/21] Active Medications Magnesium Sulfate/Dextrose (Magnesium Sulfate / D5w) 1 gm in 100 mls @ 50 mls/hr IV Q2H GRAY Stop: 09/30/21 22:44 Discontinued Medications Sodium Chloride (Nss 1000ml) 1,000 mls @ 999 mls/hr IV .Q1H1M ONE Stop: 09/30/21 14:33 Last Infusion: 09/30/21 15:01 Dose: 0 mls/hr Documented by: [id number] Admin: 09/30/21 14:00 Dose: 999 mls/hr Documented by: [id number] Lorazepam (Lorazepam 2 Mg/1 Ml Vial) 1 mg IV NOW STA; Protocol Stop: 09/30/21 14:45 Last Admin: 09/30/21 14:58 Dose: 1 mg Documented by: [id number] ECG Additional Comments: Sinus tachycardia Nonspecific T wave abnormality Abnormal ECG When compared with ECG of 19-OCT-2020 10:23, Vent. rate has increased BY 58 BPM T wave inversion now evident in Lateral leads Code Status & VTE Plan Code Status CODE: FULL VTE: SCDS, Lovenox 40mg sub q daily Supervising Physician Co-Signing Physician Notes I personally saw and examined the patient. I verified all forte points and agree with JOHN Marcelino with the following exceptions and/or additions: 66 year old female admission due to concerns for tachycardia. Significant history of panic attacks, PTSD and "nerves" although she denies anxiety. Previously on paroxetine, trazodone and. Stockpiled diazepam in 2019 with prescriptions every month and uses very infrequently (she is still on her February 2020 bottle). She has significant anxiety about health issues due to her husbands health (history of atrial fibrillation) and twin sisters . O/E HS 1+2, no murmurs, regular rhythm, tachycardic rate, Chest CTAB, Alert, anxious affect. A/P Inappropriate sinus tachycardia - cardiology consulted to assess for alternative arrhythmia as she wore a outpatient monitor without the results available at this time. Low suspicion of atrial fibrillation. Consider switching metoprolol back to atenolol and reducing amlodipine (due to syncope and likely making tachycardia worse). Mobilize patient around tomorrow as she feels she can make her heart race when this happens and will observe what happens on telemetry. Hot flashes, insomnia - last 2 years. She has a significant correlation with starting levothyroxine and changes this medication. Symptoms are consistent with menopause but she is adamant about time frame of starting 2 years ago making this unlikely. Will get urine metanephrines and catecholamines to assess for pheochromocytoma given constellation of symptoms and prior elevated lactate. Mild metabolic acidosis with elevated anion gap - prior history of elevated lactate, also with ketones in urine. Will repeat with AM labs with lactate. Patient counselled on making sure her physicians are kept informed when she is stopping medication and to trial medication for a longer period and make a note of side effects otherwise it is hard to find out what is helpful or why. Will hold off placing PG Care Time/CCT Total # of Minutes Spent Total Time Spent with Patient: Total time spent is greater than 50% in coordination of care (as documented) at patient's floor/unit and/or counseling patient: Coding Level of Care Code INT OBSERVATION CARE 50M LVL 2 Diagnoses Tachycardia R00.0 Rheumatoid arthritis M06.9 Anxiety F41.9 Post-surgical hypothyroidism E89.0 Weakness R53.1 Hypertension I10
--- NOTE | 2021-09-30 19:14 | Electrocardiogram Report ---
Test Reason : Blood Pressure : / mmHG Vent. Rate : 128 BPM Atrial Rate : 128 BPM P-R Int : 140 ms QRS Dur : 064 ms QT Int : 308 ms P-R-T Axes : 057 032 092 degrees QTc Int : 449 ms Poor data quality, interpretation may be adversely affected Sinus tachycardia Nonspecific T wave abnormality Abnormal ECG When compared with ECG of 19-OCT-2020 10:23, Vent. rate has increased BY 58 BPM T wave inversion now evident in Lateral leads Confirmed by Jung Reyes ([id number]) on 09/30/2021 7:13:58 PM Referred By: Confirmed By:Mitchell Reyes
[2021-09-30] MEDS: MAGNESIUM SULFATE / D5W 1 GM/100 ML BAG IV SCH ×2 (20:08→22:10)
[2021-09-30] MEDS ORDERED: POLYETHYLENE (MIRALAX) 17 GM PACK PO PRN (20:52)
[2021-09-30] MEDS ORDERED: ACETAMINOPHEN 325 MG TAB PO PRN (20:52)
[2021-09-30] MEDS ORDERED: ONDANSETRON INJ 2 MG/ML 2 ML VIAL IV PRN (20:52)
[2021-09-30] MEDS ORDERED: traZODone HCL 50 MG TAB PO SCH (21:00)
[2021-09-30] MEDS ORDERED: Patient's HEIGHT &/or WEIGHT Needed SCH (21:30)
[2021-10-01] MEDS ORDERED: MELATONIN 3 MG TAB PO PRN (03:40)
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
[2021-10-01 08:45] LABS: Hematocrit (blood only) 40.5 % (37-47); Hemoglobin 13.4 g/dL (12.0-16.0); Mean Corpuscular Hemoglobin 30.1 pg (25-34); Mean Corpuscular Hgb Conc 33.1 g/dL (32-36); Mean Platelet Volume 10.8 fL (7.4-10.4); Platelet Count 271 K/uL (130-400); RDW Coefficient of Variation 13.8 % (11.5-14.5); RDW Standard Deviation 45.8 fL (36.4-46.3); Red Blood Count 4.45 M/uL (4.2-5.4); White Blood Count 5.05 K/uL (4.8-10.8)
[2021-10-01 08:58] LABS: BUN Creatinine Ratio 10.5 (10-20); Chol HDL Ratio 3.6 (0-5); Creatinine Clr Calc Pharmacy 75.4 ml/min; Est GFR (African American) 94.7 ml/min; Est GFR (Non-African American) 81.7 ml/min; Magnesium 2.3 mg/dl (1.7-2.4); Potassium 3.5 mmol/L (3.5-5.1)
[2021-10-01] MEDS ORDERED: METOPROLOL SUCC 50MG EXT REL TAB PO SCH (09:00)
[2021-10-01] MEDS ORDERED: LEVOTHYROXINE SODIUM 50 MCG TABLET PO SCH (09:00)
[2021-10-01] MEDS ORDERED: amLODIPine BESYLATE 5 MG TAB PO SCH (09:00)
[2021-10-01] MEDS ORDERED: HYDROXYCHLOROQUINE SULFATE 200 MG TAB PO SCH (09:00)
[2021-10-01] MEDS ORDERED: ENOXAPARIN INJ 40 MG/0.4 ML SYR SQ SCH (09:00)
[2021-10-01] MEDS ORDERED: FOLIC ACID 400 MCG TAB PO SCH (09:00)
[2021-10-01] MEDS ORDERED: CYANOCOBALAMIN (B-12) 500 MCG TABLET PO SCH (09:00)
[2021-10-01] MEDS ORDERED: CHOLECALCIFEROL 1,000 UNITS 25 MCG TAB PO SCH (09:00)
[2021-10-01 09:35] LABS: Basophils # (auto) 0.01 K/uL (0-0.2); Basophils % (auto) 0.2 %; Eosinophils # (auto) 0.04 K/uL (0-0.5); Eosinophils % (auto) 0.8 %; Immature Granulocytes # (auto) 0.01 K/uL (0.00-0.02); Immature Granulocytes % (auto) 0.2 %; Lymphocytes # (auto) 2.58 K/uL (1.2-3.4); Lymphocytes % (auto) 51.1 %; Monocytes # (auto) 0.51 K/uL (0.11-0.59); Monocytes % (auto) 10.1 %; Neutrophils % (auto) 37.6 %; RBC Morphology Unremarkable
--- NOTE | 2021-10-01 11:55 | Electrocardiogram Report ---
Test Reason : Blood Pressure : / mmHG Vent. Rate : 080 BPM Atrial Rate : 080 BPM P-R Int : 160 ms QRS Dur : 084 ms QT Int : 426 ms P-R-T Axes : 059 014 053 degrees QTc Int : 491 ms Normal sinus rhythm Nonspecific T wave abnormality Prolonged QT Abnormal ECG When compared with ECG of 30-SEP-2021 12:16, Vent. rate has decreased BY 48 BPM Nonspecific T wave abnormality now evident in Anterior leads Confirmed by Jung Reyes ([id number]) on 10/01/2021 11:55:06 AM Referred By: Mitchell Reyes Confirmed By:Mitchell Reyes
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
[2021-10-01] MEDS ORDERED: KETOROLAC TROMETHAMINE 15 MG/ML VIAL IV ONE (13:31)
== END 2021-10-01 15:15 | disposition home or self-care (01) ==
LOC: 2N 12:08 → ED 12:08 → SUATTDRO 18:54 → 2N 20:26
DX: M06.9 Rheumatoid arthritis, unspecified; R00.0 Tachycardia, unspecified; Z88.5 Allergy status to narcotic agent; I10 Essential (primary) hypertension; Z79.890 Hormone replacement therapy; R00.2 Palpitations; R53.1 Weakness; E89.0 Postprocedural hypothyroidism; R55 Syncope and collapse; Z79.899 Other long term (current) drug therapy; F41.9 Anxiety disorder, unspecified